=== PATIENT | female | born 1965 ===

== ENCOUNTER 2020-03-07 14:38 | Outpatient (REF) | payer OTHER, SELFPAY | END 2020-03-07 14:39 | disposition home or self-care (01) | LOC: HO.LAB 14:38 | PROVIDERS: PCP Internal Medicine; Visit Provider Internal Medicine | DX: Z20.828 Contact with and (suspected) exposure to other viral communicable diseases (principal) | CPT/HCPCS: 87635 ==

== ENCOUNTER → 2020-04-10 14:34 | Outpatient (BNVA) | payer OTHER, SELFPAY | PROVIDERS: PCP Internal Medicine; Referring Provider Internal Medicine; Visit Provider Nurse Practitioner Family | DX: Z01.818 Encounter for other preprocedural examination (principal); K59.00 Constipation, unspecified | CPT/HCPCS: 99212 ==

== ENCOUNTER 2020-05-31 07:38 | Outpatient (REF) | payer OTHER, SELFPAY | END 2020-05-31 07:39 | disposition home or self-care (01) | LOC: HO.LAB 07:38 | PROVIDERS: PCP Internal Medicine; Visit Provider Internal Medicine | DX: Z20.828 Contact with and (suspected) exposure to other viral communicable diseases (principal) | CPT/HCPCS: C9803; U0003 ==

== ENCOUNTER 2020-07-05 08:47 | Outpatient (REF) | payer OTHER, SELFPAY | END 2020-07-05 08:48 | disposition home or self-care (01) | LOC: HO.LAB 08:47 | PROVIDERS: Visit Provider Internal Medicine | DX: Z20.822 Contact with and (suspected) exposure to COVID-19 (principal) | CPT/HCPCS: 36415; C9803; U0003; U0005 ==

== ENCOUNTER 2020-10-17 10:17 | Emergency (ER) | payer OTHER, SELFPAY ==
[2020-10-17 11:02] VITALS: BP 147/83; PULSE 72; RESP 18; TEMP 36.7; O2SAT 98; BMI 28.3
[2020-10-17] MEDS: Cyclobenzaprine HCl 5 MG TABLET PO (11:40)
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
== END 2020-10-17 12:28 | disposition home or self-care (01) ==
PROVIDERS: Emergency Provider Emergency Medicine; PCP Internal Medicine
DX: Z04.1 Encounter for examination and observation following transport accident (principal); M79.10 Myalgia, unspecified site
CPT/HCPCS: 99283

== ENCOUNTER 2020-10-18 11:00 | Outpatient (RCR) | payer OTHER, SELFPAY | END 2020-10-18 11:27 | disposition home or self-care (01) | LOC: HO.PT 11:00 | PROVIDERS: PCP Internal Medicine; Visit Provider Internal Medicine | DX: M54.5 Low back pain (principal) | CPT/HCPCS: 97110; 97162 ==

== ENCOUNTER 2020-12-07 16:04 | Emergency (ER) | payer OTHER, SELFPAY ==
--- NOTE | ~2020-12-07 | US_ITS ---
EXAMINATION: US VENOUS ULTRASOUND WITH DOPPLER LOWER EXTREMITY, BILATERAL CLINICAL INFORMATION: Swelling. Recent travel. Calf pain. COMPARISON: None TECHNIQUE: Ultrasound of the deep veins is performed from the hip to the calf with compression sonography and color and pulse Doppler assessment. Spectral analysis with color-flow imaging is performed. FINDINGS: RIGHT: There is normal venous compression and respiratory variation and augmented flow. The visualized common femoral vein, superficial femoral vein, profunda femoral vein, popliteal vein, and the trifurcation region shows no evidence of deep venous thrombosis. There is no significant popliteal fossa cyst. LEFT: There is normal venous compression and respiratory variation and augmented flow. The visualized common femoral vein, superficial femoral vein, profunda femoral vein, popliteal vein, and the trifurcation region shows no evidence of deep venous thrombosis. There is no significant popliteal fossa cyst. If the patient's symptoms persist, followup ultrasound in 5 days 7 days might be of value to exclude proximal propagation from a non-visualized calf vein. US/US venous duplex LE BI IMPRESSION: No DVT demonstrated in the bilateral lower extremity.
[2020-12-07 16:12] VITALS: BP 166/69; PULSE 71; RESP 16; TEMP 36.5; O2SAT 100; BMI 28.3
[2020-12-07 17:13] VITALS: BP 147/80; PULSE 75; O2SAT 99
[2020-12-07 18:32] VITALS: RESP 16
--- NOTE | 2020-12-07 20:21 | ED_ITS ---
HPI - Extremity Problem General Chief complaint: Extremity Problem Stated complaint: LEG SWELLING Time Seen by Provider: 12/07/20 17:39 Source: patient Mode of arrival: ambulatory History of Present Illness HPI Narrative: 55-year-old female with a past medical history of asthma, Lakisha's thyroiditis, HTN, presenting to the ED complaining of bilateral lower extremity edema and calf pain >LLE s/p flying home from [place]. Patient admits was sent in by PCP for rule out DVT. denies fever, chills, SOB, CP, cigarette smoking, history of blood clots, trauma/falls, oral OCPs MD Complaint: extremity pain and extremity swelling Related Data Home Medications Medication Instructions Recorded Confirmed clonazepam 0.5 mg tablet 0.25 mg PO BEDTIME 04/10/20 04/10/20 sertraline 100 mg tablet 100 mg PO DAILY 04/10/20 04/10/20 Previous Rx's Medication Instructions Recorded docusate sodium 100 mg capsule 100 mg PO DAILY #30 cap 04/10/20 methylcellulose (laxative) 500 mg 500 mg PO DAILY #30 tab 04/10/20 tablet polyethylene glycol 3350 17 17 g PO ONCE #238 g 04/10/20 gram/dose oral powder acetaminophen [Tylenol Extra 500 mg PO Q6H PRN #20 tab 10/17/20 Strength] cyclobenzaprine 5 mg PO Q8H PRN 5 Days #14 tab 10/17/20 lidocaine [Lidoderm] 1 patch TOPICAL DAILY PRN #30 ea 10/17/20 MDD remove after 12 hours Allergies Allergy/AdvReac Type Severity Reaction Status Date / Time latex Allergy Intermediate HIVES Verified 12/07/20 16:12 aspirin [Aspirin] Allergy Mild HIVES Verified 12/07/20 16:12 Sulfa (Sulfonamide Allergy Mild HIVES Verified 12/07/20 16:12 Antibiotics) [Sulfa (Sulfonamides)] Benadryl Allergy Unknown shortness Verified 12/07/20 16:12 of breath ciprofloxacin [From CIPRO] Allergy Unknown TIGHT Verified 12/07/20 16:12 THROAT diphenhydramine Allergy Unknown HIVES Verified 12/07/20 16:12 [From BENADRYL] penicillin V Allergy Unknown shortness Verified 12/07/20 16:12 of breath Penicillins [PENICILLINS] Allergy Unknown SWELLING Verified 12/07/20 16:12 sulfadiazine Allergy Unknown rash Verified 12/07/20 16:12 Vicodin AdvReac Unknown hives Uncoded 07/26/19 00:00 Review of Systems Review of Systems: Constitutional: No Fever, No Chills, No Malaise Cardiovascular: No Chest Pain, No SOB, No Dyspnea on Exertion, +Edema Respiratory: No Cough, No Dyspnea Gastrointestinal: No Nausea, No Vomiting, No Diarrhea, No Abdominal pain Genitourinary: No Dysuria, No Urinary Frequency, No Hematuria Musculoskeletal: No joint pain, +calf pain, No Joint Swelling Skin: No Skin Lesions, No rash Neuro: No Weakness, No Numbness, No Paresthesias Yes all other systems are reviewed and are negative [facility] Past Medical History Attestation statement: The following information was validated with the patient. Medical History (Updated 12/07/20 @ 20:27 by ALICE Patterson) Asthma H/O Lakisha thyroiditis HTN (hypertension) Surgical History (Updated 04/10/20 @ 14:36 by ELISA Duncan) H/O: hysterectomy Family History Family History (Updated 04/10/20 @ 14:37 by ELISA Duncan) Father Diabetes High blood pressure Stroke Mother Pancreatic cancer High blood pressure Sister Diabetes High blood pressure Social History Social History (Updated 04/10/20 @ 14:38 by ELISA Duncan) Household Members: None Housing: Apartment Alcohol intake: never Patient Tobacco Use Status: Never used Tobacco Use of substances other than those prescribed or required for medical reasons: No Advance Directives: No Advance Directives Information Provided: Yes Patient : No Physical Exam Vital Signs: Vital Signs: Last Vital Signs Temp 97.7 F 12/07/20 16:12 Pulse 75 12/07/20 17:13 Resp 16 12/07/20 18:32 BP 147/80 H 12/07/20 17:13 Pulse Ox 99 12/07/20 17:13 Body Mass Index 28.3 Const: General: cooperative and healthy appearing Orientation/consciousness: patient oriented x3 Limitations: no limitations HENMT: Head: Yes normal to inspection Ears: hearing grossly normal bilaterally General nose exam: Normal external nose present Face and sinus: Yes normal facial exam Eyes: General: appearance normal, both eyes and all related structures EOM: EOMs intact bilaterally Neck: Neck: Yes normal visual inspection Resp: Effort & Inspection: normal respiratory effort and not labored Cardio: Rate: regular rate Peripheral pulses: dorsalis pedis present GI: Inspection: Yes normal to inspection Skin: Rashes: no rashes Wounds: no wounds Neuro: General: patient oriented x3 and tone normal Gait exam (Neuro): Normal gait present Extrem: Other: + mild left lower extremity ankle swelling noted with +left calf tenderness No lower extremity pitting edema. NV intact General: Yes normal to inspection Course Course Course Narrative: US venous duplex LE BI IMPRESSION: No DVT demonstrated in the bilateral lower extremity. >> results discussed with patient including worrisome signs and symptoms and strict return precautions, she verbalized understanding feel safe for discharge home MDM - Extremity (Nontraumatic) MDM Narrative Medical decision making narrative: 55-year-old female with a past medical history of asthma, Lakisha's thyroiditis, HTN, presenting to the ED complaining of bilateral lower extremity edema and calf pain >LLE s/p flying home from [place]. on exam VS, NAD/ well-appearing, physical exam as above. Concern for DVT. Low concern for PE without SOB/CP plan: Bilateral venous duplex ultrasound Discharge Plan Discharge Clinical Impression: Lower extremity edema Patient Disposition: Home, Self-Care Instructions: Edema (ED) Additional Instructions: your ultrasound was unremarkable It is important for you to follow-up with your primary care doctor You should order compression stockings, elevate your feet, take Tylenol Motrin for pain If her symptoms persist or worsen, develop any shortness breath or chest pain please return to the ED Prescriptions: No Action acetaminophen [Tylenol Extra Strength] 500 mg tablet 500 mg PO Q6H PRN (Reason: pain or fever) Qty: 20 RF: 0 lidocaine [Lidoderm] 5 % adhesive patch,medicated 1 patch topical DAILY MDD remove after 12 hours PRN (Reason: pain) Qty: 30 RF: 0 cyclobenzaprine 5 mg tablet 5 mg PO Q8H PRN (Reason: pain (scale score 7-10)) 5 Days Qty: 14 RF: 0 clonazepam [Klonopin] 0.5 mg tablet 0.25 mg PO BEDTIME RF: 0 sertraline 100 mg tablet 100 mg PO DAILY RF: 0 polyethylene glycol 3350 [Miralax] 17 gram/dose powder 17 g PO ONCE Qty: 238 RF: 0 docusate sodium 100 mg capsule 100 mg PO DAILY Qty: 30 RF: 2 Citrucel 500 mg tablet 500 mg PO DAILY Qty: 30 RF: 2 Referrals: Sara Boyce MD [Primary Care Provider] - 2 days
== END 2020-12-07 20:32 | disposition home or self-care (01) ==
PROVIDERS: Emergency Provider Emergency Medicine Emergency Medical Services; PCP Internal Medicine
DX: R60.0 Localized edema (principal); M79.662 Pain in left lower leg; M79.661 Pain in right lower leg; I10 Essential (primary) hypertension
CPT/HCPCS: 93970; 99284

== ENCOUNTER 2021-02-19 12:56 | Outpatient (REF) | payer OTHER, SELFPAY ==
--- NOTE | ~2021-02-19 | MM_ITS ---
EXAMINATION: MM SCREENING DIGITAL BREAST TOMOSYNTHESIS, BILATERAL CLINICAL INFORMATION: Screening. Asymptomatic. The lifetime risk of breast cancer based on the Tyrer-Cuzick Model is 9.0%. COMPARISON: Mammography: April 23, 2019 and studies dating back to July 30, 2011 TECHNIQUE: Digital breast tomosynthesis is performed in both the craniocaudal and mediolateral oblique views along with computer-aided detection (CAD). Synthesized 2D images are generated from the tomosynthesis. FINDINGS: There are scattered areas of fibroglandular density (ACR BI-RADS breast composition Category b). There are no significant masses, abnormal calcifications, or other abnormalities. MM/MM tomosynthesis screening BI IMPRESSION: There are no significant changes from prior study. ASSESSMENT: BI-RADS 1: Negative RECOMMENDATION: Routine annual mammography screening. This patient's information was entered into a reminder system with a target due date for their next mammogram.
== END 2021-02-19 12:57 | disposition home or self-care (01) ==
LOC: HO.MAMMO 12:56
PROVIDERS: PCP Internal Medicine; Visit Provider Internal Medicine
DX: Z12.31 Encounter for screening mammogram for malignant neoplasm of breast (principal)
CPT/HCPCS: 77063; 77067

== ENCOUNTER 2021-04-25 12:56 | Outpatient (REF) | payer OTHER, SELFPAY ==
--- NOTE | ~2021-04-25 | XR_ITS ---
EXAMINATION: XR CHEST CLINICAL INFORMATION: Acute lower respiratory tract infection COMPARISON: Previous chest x-rays most recent March 2018 TECHNIQUE: 2 views of the chest were obtained. FINDINGS: The cardiac and mediastinal contours are stable. The lungs are clear. There is no pleural effusion or pneumothorax. There is curvature of the midthoracic spine to the right. XR/XR chest 2V IMPRESSION: No evidence for acute disease in the chest.
[2021-04-25 14:15] LABS: Appearance Urine CLEAR; Color Urine YELLOW; Glucose Urine UA NEG (NEG); Leukocyte Esterase Urine NEG (NEG); Nitrite Urine NEG (NEG); Specific Gravity - Urine <= 1.005 (1.005-1.025); Urine Blood NEG (NEG); Urine Ketones NEG (NEG); Urine Protein NEG (NEG-TRACE)
[2021-04-25 14:23] LABS: RBC Urine 0-2 /HPF (0); Squamous Epithelial Cell Urine 1+ /LPF; WBC Urine 0-2 /HPF (0-4)
== END 2021-04-25 12:57 | disposition home or self-care (01) ==
LOC: HO.XRAY 12:56
PROVIDERS: PCP Internal Medicine; Visit Provider Internal Medicine
DX: J22 Unspecified acute lower respiratory infection (principal); R30.0 Dysuria
CPT/HCPCS: 71046; 81001

== ENCOUNTER → 2021-08-08 14:58 | Outpatient (BNVA) | payer OTHER, SELFPAY | PROVIDERS: PCP Internal Medicine; Visit Provider Internal Medicine Endocrinology, Diabetes & Metabolism | DX: E06.3 Autoimmune thyroiditis (principal) | CPT/HCPCS: 99212 ==

== ENCOUNTER 2021-08-16 10:37 | Outpatient (REF) | payer OTHER, SELFPAY ==
[2021-08-16 12:18] LABS: Free T4 (Free Thyroxine) 0.66 ng/dL (0.71-1.85); Thyroid Stimulating Hormone 1.05 uIU/mL (0.32-4.0)
== END 2021-08-16 10:38 | disposition home or self-care (01) ==
LOC: HO.LAB 10:37
PROVIDERS: PCP Internal Medicine; Visit Provider Internal Medicine Endocrinology, Diabetes & Metabolism
DX: E06.3 Autoimmune thyroiditis (principal)
CPT/HCPCS: 36415; 84439; 84443

== ENCOUNTER 2021-12-08 03:28 | Observation (INO) | payer OTHER, SELFPAY ==
[2021-12-08] VITALS (22 sets, daily range): BP systolic 111–148; BP diastolic 67–84; PULSE 67–88; RESP 14–18; TEMP 36.1–36.8; O2SAT 94–100; BMI 29.7
--- NOTE | ~2021-12-08 | US_ITS ---
EXAMINATION: US ABDOMEN LIMITED CLINICAL INFORMATION: Right upper quadrant pain. COMPARISON: 05/02/2018 TECHNIQUE: Real-time imaging of the right upper quadrant abdominal viscera. FINDINGS: PANCREAS: The pancreatic head and body are unremarkable. The tail is obscured by gas. LIVER: The liver is normal in size. The liver contour is normal. There is diffuse increased liver parenchymal echogenicity, consistent with hepatic steatosis. No focal hepatic lesion. There is no intrahepatic biliary duct dilatation seen. GALLBLADDER: Stones and sludge are seen in the gallbladder lumen with a stone at the gallbladder neck. No gallbladder wall thickening, edema, or pericholecystic fluid. COMMON BILE DUCT: Normal in caliber measuring 0.4 cm in diameter. RIGHT KIDNEY: Normal. No hydronephrosis. No renal calculi or focal parenchymal lesions. The kidney measures 10.8 cm in maximum dimension. FREE FLUID: None. US/US abdomen limited IMPRESSION: Hepatic steatosis. Cholelithiasis and gallbladder sludge. No inflammatory change.
--- NOTE | ~2021-12-08 | XR_ITS ---
EXAMINATION: XR CHEST CLINICAL INFORMATION: Preop COMPARISON: Chest x-ray 04/25/2021 TECHNIQUE: Frontal view of the chest was obtained. FINDINGS: The lungs are somewhat expanded and clear. The heart size and pulmonary vascularity is normal. No gross bony abnormality seen. XR/XR chest 1V IMPRESSION: Unremarkable chest examination.
[2021-12-08] MEDS: Ondansetron ODT 4 MG TAB.RAPDIS TRANSLINGU (03:40)
[2021-12-08 03:53] LABS: MANUAL DIFF FLAG NO
[2021-12-08 03:55] LABS: Basophils Absolute Auto 0.1 X10*3/uL (0.0-0.2); Basophils Percent Auto 0.6 % (0-2); Eosinophils Absolute Auto 0.4 X10*3/uL (0.0-0.4); Eosinophils Percent Auto 4.2 % (0-4); Hematocrit 41.9 % (37.0-47.0); Hemoglobin 14.3 g/dl (12.0-16.0); Imm Gran Abs Auto 0.02 X10*3/uL (0.00-0.03); Imm Gran Pct Auto 0.2 % (0.0-0.4); Lymphocytes Absolute Auto 4.1 X10*3/uL (1.2-4.9); Lymphocytes Percent Auto 39.5 % (20-40); Mean Corpuscular HGB Conc 34.1 g/dl (31.0-35.0); Mean Corpuscular Hemoglobin 29.8 pg (27.0-33.0); Mean Corpuscular Volume 87.3 fL (80.0-98.0); Mean Platelet Volume 9.4 fL (9.4-12.3); Monocytes Absolute Auto 0.7 X10*3/uL (0.1-1.2); Neutrophils Absolute Auto 5.1 x10*3/uL (2.0-8.3); Neutrophils Percent Auto 48.5 % (45-73); Platelet Count 275 X10*3/uL (160-400); Red Cell Distribution Width 12.4 % (11.0-16.0); White Blood Count 10.4 X10*3/uL (4.8-10.8)
[2021-12-08 04:09] LABS: COVID-19 Test Negative (Negative)
[2021-12-08 04:18] LABS: Alanine Aminotransferase 32 U/L (0-31); Albumin Level 4.4 g/dL (3.5-5.0); Alkaline Phosphatase 93 U/L (39-117); Anion Gap 13 (12-20); Aspartate Amino Transferase 22 U/L (5-31); Bilirubin Direct < 0.2 mg/dL (0.0-0.5); Bilirubin Total 0.3 mg/dL (0.0-1.0); Blood Urea Nitrogen 14 mg/dL (9-16); Calcium 9.6 mg/dL (8.4-10.2); Carbon Dioxide 28 mmol/L (22-29); Chloride 103 mmol/L (96-108); Creatinine Clr Calc Pharmacy 56.9; Estimated Glomerular Filt Rate 59; Glucose Random 113 mg/dL (60-115); Potassium 3.7 mmol/L (3.3-5.1); Sodium 140 mmol/L (135-145); Total Protein 7.6 g/dL (6.5-8.0)
--- NOTE | 2021-12-08 04:49 | ED_ITS ---
HPI - Abdominal Pain General Chief Complaint: Abdominal Pain Stated Complaint: Flank pain Time Seen by Provider: 12/08/21 04:34 Source: patient Mode of arrival: ambulatory History of Present Illness HPI narrative: 56-year-old female who presents with 2 days onset of right upper quadrant abdominal discomfort that radiates into the back and has been associated with nausea but denies any vomiting, fever, chills, or diarrhea. She denies any alcohol/drug/marijuana use in states that she still has her gallbladder and has no history of renal colic. She denies any recent cough. Related Data Home Medications Medication Instructions Recorded Confirmed clonazepam 0.5 mg tablet (Klonopin) 0.25 mg PO BEDTIME 04/10/20 08/08/21 sertraline 100 mg tablet 100 mg PO DAILY 04/10/20 08/08/21 amlodipine 10 mg tablet 10 mg PO DAILY 08/08/21 08/08/21 docusate sodium 100 mg capsule 100 mg PO DAILY PRN 08/08/21 08/08/21 hydrochlorothiazide 25 mg tablet 25 mg PO DAILY 08/08/21 08/08/21 lidocaine 5 % topical ointment topical 08/08/21 08/08/21 methylcellulose (laxative) 500 mg 500 mg PO DAILY PRN 08/08/21 08/08/21 tablet (Citrucel) polyethylene glycol 3350 17 17 g PO ONCE PRN 08/08/21 08/08/21 gram/dose oral powder (Miralax) Previous Rx's Medication Instructions Recorded acetaminophen 500 mg tablet 500 mg PO Q6H PRN pain or fever 10/17/20 (Tylenol Extra Strength) #20 tabs cyclobenzaprine 5 mg tablet 5 mg PO Q8H PRN pain (scale score 10/17/20 7-10) 5 days #14 tabs Allergies Allergy/AdvReac Type Severity Reaction Status Date / Time latex Allergy Intermediate HIVES Verified 08/08/21 15:09 aspirin [Aspirin] Allergy Mild HIVES Verified 08/08/21 15:09 Sulfa (Sulfonamide Allergy Mild HIVES Verified 08/08/21 15:09 Antibiotics) [Sulfa (Sulfonamides)] Benadryl Allergy Unknown shortness Verified 08/08/21 15:09 of breath ciprofloxacin [From CIPRO] Allergy Unknown TIGHT Verified 08/08/21 15:09 THROAT diphenhydramine Allergy Unknown HIVES Verified 08/08/21 15:09 [From BENADRYL] penicillin V Allergy Unknown shortness Verified 08/08/21 15:09 of breath Penicillins [PENICILLINS] Allergy Unknown SWELLING Verified 08/08/21 15:09 sulfadiazine Allergy Unknown rash Verified 08/08/21 15:09 Vicodin AdvReac Unknown hives Uncoded 08/08/21 15:09 Review of Systems Review of Systems Pertinent positives and negatives as stated in HPI 10 point review of systems is otherwise negative. [facility] Past Medical History Source: nursing notes reviewed Medical History Asthma H/O Lakisha thyroiditis Lakisha's thyroiditis HTN (hypertension) Surgical History H/O: hysterectomy Family History Family History Father Diabetes High blood pressure Stroke Mother Pancreatic cancer High blood pressure Sister Diabetes High blood pressure Social History Social History Household Members: None Housing: Apartment Alcohol intake: never Patient Tobacco Use Status: Never used Tobacco Use of substances other than those prescribed or required for medical reasons: No Advance Directives: No Physical Exam ED Vital Signs: Vital Signs - 24 hr 12/08/21 03:35 12/08/21 06:00 Temperature 97.5 F 97.8 F Pulse Rate 76 67 Respiratory Rate 18 15 Blood Pressure 148/84 H 146/80 H Pulse Oximetry 100 100 Oxygen Delivery Method Room Air Room Air BMI result Body Mass Index 29.7 VITAL SIGNS: Reviewed. GENERAL: Well developed, well nourished, in no acute distress. HEAD: Normocephalic/atraumatic EYES: PERRLA, EOMI EARS: Ext canals without abnormality OROPHARYNX: no oral lesions noted, posterior pharynx clear LUNGS: Normal breath sounds. SpO2<100> CARDIOVASCULAR: Regular rate and rhythm without noted murmurs ABDOMEN: Soft, right upper quadrant abdominal pain without rebound, non- distended with bowel sounds. MUSCULOSKELETAL: No tenderness, deformities, or effusions noted on gross inspection. EXTREMITIES: No cyanosis, clubbing or edema. SKIN: Inspection of the skin reveals no rash NEUROLOGIC: Alert and oriented x 4. Strength and sensation to light touch were grossly intact x 4. Course Course Course Narrative: 56-year-old female with history and clinical presentation suggestive of possible cholecystitis but doubt pneumonia or renal colic at this time. Review of all investigations and after speaking with the motorcycle technician it would seem that patient has a stone within the neck of the gallbladder and on re-evaluation she continues to abdominal discomfort. I discussed the case with Dr. Mock who will see the patient here in the ER. Otherwise, ultrasound did not show any evidence of acute cholecystitis and patient does not have a leukocytosis. She is otherwise hemodynamically stable. Signed out to Dr Aman ALEGRIA - Abdominal Pain Lab Data Result diagrams: 12/08/21 03:39 12/08/21 03:39 Labs: Lab Results 12/08/21 12/08/21 12/08/21 Range/Units 03:39 03:39 03:39 WBC 10.4 (4.8-10.8) X10*3/uL RBC 4.80 (4.20-5.50) X10*6/uL Hgb 14.3 (12.0-16.0) g/dl Hct 41.9 (37.0-47.0) % MCV 87.3 (80.0-98.0) fL MCH 29.8 (27.0-33.0) pg MCHC 34.1 (31.0-35.0) g/dl RDW 12.4 (11.0-16.0) % Plt Count 275 (160-400) X10*3/uL MPV 9.4 (9.4-12.3) fL Immature Gran % (Auto) 0.2 (0.0-0.4) % Neut % (Auto) 48.5 (45-73) % Lymph % (Auto) 39.5 (20-40) % [place] % (Auto) 7.0 (2-11) % Eos % (Auto) 4.2 H (0-4) % Baso % (Auto) 0.6 (0-2) % Lymph # (Auto) 4.1 (1.2-4.9) X10*3/uL [place] # (Auto) 0.7 (0.1-1.2) X10*3/uL Eos # (Auto) 0.4 (0.0-0.4) X10*3/uL Baso # (Auto) 0.1 (0.0-0.2) X10*3/uL Abs Immat Gran (auto) 0.02 (0.00-0.03) X10*3/uL Absolute Neuts (auto) 5.1 (2.0-8.3) x10*3/uL Absolute Nucleated RBC 0.000 (0.0-0.012) X10*3/uL Nucleated RBC % (auto) 0.0 (0.0-0.2) /100WBC Sodium 140 (135-145) mmol/L Potassium 3.7 (3.3-5.1) mmol/L Chloride 103 (96-108) mmol/L Carbon Dioxide 28 (22-29) mmol/L Anion Gap 13 (12-20) BUN 14 (9-16) mg/dL Creatinine 0.98 (0.5-1.4) mg/dL Estim Creat Clear Calc 56.9 Estimated GFR 59 Random Glucose 113 (60-115) mg/dL Calcium 9.6 (8.4-10.2) mg/dL Total Bilirubin 0.3 (0.0-1.0) mg/dL Direct Bilirubin < 0.2 (0.0-0.5) mg/dL AST 22 (5-31) U/L ALT 32 H (0-31) U/L Alkaline Phosphatase 93 (39-117) U/L Total Protein 7.6 (6.5-8.0) g/dL Albumin 4.4 (3.5-5.0) g/dL Lipase 38 (8-78) U/L Urine Color Urine Appearance Urine pH (5.0-8.0) Ur Specific [place] (1.005-1.025) Urine Protein (NEG-TRACE) MG/DL Urine Glucose (UA) (NEG) MG/DL Urine Ketones (NEG) MG/DL Urine Blood (NEG) Urine Nitrite (NEG) Ur Leukocyte Esterase (NEG) Urine RBC (0) /HPF Urine WBC (0-4) /HPF Ur Squamous Epith Cells /LPF Amorphous Sediment /LPF Urine Bacteria /LPF COVID-19 (SHAREE) Negative (Negative) COVID-19 Clin Com See Note 12/08/21 Range/Units 05:36 WBC (4.8-10.8) X10*3/uL RBC (4.20-5.50) X10*6/uL Hgb (12.0-16.0) g/dl Hct (37.0-47.0) % MCV (80.0-98.0) fL MCH (27.0-33.0) pg MCHC (31.0-35.0) g/dl RDW (11.0-16.0) % Plt Count (160-400) X10*3/uL MPV (9.4-12.3) fL Immature Gran % (Auto) (0.0-0.4) % Neut % (Auto) (45-73) % Lymph % (Auto) (20-40) % [place] % (Auto) (2-11) % Eos % (Auto) (0-4) % Baso % (Auto) (0-2) % Lymph # (Auto) (1.2-4.9) X10*3/uL [place] # (Auto) (0.1-1.2) X10*3/uL Eos # (Auto) (0.0-0.4) X10*3/uL Baso # (Auto) (0.0-0.2) X10*3/uL Abs Immat Gran (auto) (0.00-0.03) X10*3/uL Absolute Neuts (auto) (2.0-8.3) x10*3/uL Absolute Nucleated RBC (0.0-0.012) X10*3/uL Nucleated RBC % (auto) (0.0-0.2) /100WBC Sodium (135-145) mmol/L Potassium (3.3-5.1) mmol/L Chloride (96-108) mmol/L Carbon Dioxide (22-29) mmol/L Anion Gap (12-20) BUN (9-16) mg/dL Creatinine (0.5-1.4) mg/dL Estim Creat Clear Calc Estimated GFR Random Glucose (60-115) mg/dL Calcium (8.4-10.2) mg/dL Total Bilirubin (0.0-1.0) mg/dL Direct Bilirubin (0.0-0.5) mg/dL AST (5-31) U/L ALT (0-31) U/L Alkaline Phosphatase (39-117) U/L Total Protein (6.5-8.0) g/dL Albumin (3.5-5.0) g/dL Lipase (8-78) U/L Urine Color STRAW Urine Appearance CLOUDY Urine pH 7.5 (5.0-8.0) Ur Specific [place] 1.015 (1.005-1.025) Urine Protein NEG (NEG-TRACE) MG/DL Urine Glucose (UA) NEG (NEG) MG/DL Urine Ketones NEG (NEG) MG/DL Urine Blood TRACE (NEG) Urine Nitrite NEG (NEG) Ur Leukocyte Esterase NEG (NEG) Urine RBC 0-2 (0) /HPF Urine WBC 0-2 (0-4) /HPF Ur Squamous Epith Cells 1+ /LPF Amorphous Sediment 3+ /LPF Urine Bacteria 1+ /LPF COVID-19 (SHAREE) (Negative) COVID-19 Clin Com Discharge Plan Discharge Clinical Impression: Right upper quadrant abdominal pain, Cholelithiasis Patient Disposition: Still a Patient Prescriptions: No Action acetaminophen [Tylenol Extra Strength] 500 mg tablet 500 mg PO Q6H PRN (Reason: pain or fever) Qty: 20 0RF cyclobenzaprine 5 mg tablet 5 mg PO Q8H PRN (Reason: pain (scale score 7-10)) 5 Days Qty: 14 0RF clonazepam [Klonopin] 0.5 mg tablet 0.25 mg PO BEDTIME Rx Instructions: administer 30 minutes before bedtime sertraline 100 mg tablet 100 mg PO DAILY docusate sodium 100 mg capsule 100 mg PO DAILY PRN amlodipine 10 mg tablet 10 mg PO DAILY hydrochlorothiazide 25 mg tablet 25 mg PO DAILY Citrucel 500 mg tablet 500 mg PO DAILY PRN polyethylene glycol 3350 [Miralax] 17 gram/dose powder 17 g PO ONCE PRN Rx Instructions: As directed by gastroenterology department at [facility] lidocaine 5 % ointment topical
[2021-12-08 05:09] LABS: Lipase 38 U/L (8-78)
[2021-12-08] MEDS: Acetaminophen 325 MG TABLET 975 MG PO (05:14)
[2021-12-08 05:41] LABS: Appearance Urine CLOUDY; Color Urine STRAW; Glucose Urine UA NEG (NEG); Leukocyte Esterase Urine NEG (NEG); Nitrite Urine NEG (NEG); PH 7.5 (5.0-8.0); Specific Gravity - Urine 1.015 (1.005-1.025); UACC Culture Trigger NO; Urine Blood TRACE (NEG); Urine Ketones NEG (NEG); Urine Protein NEG (NEG-TRACE)
[2021-12-08 05:56] LABS: RBC Urine 0-2 /HPF (0); Squamous Epithelial Cell Urine 1+ /LPF; WBC Urine 0-2 /HPF (0-4)
[2021-12-08 05:57] LABS: Bacteria Urine 1+ /LPF
[2021-12-08 06:00] LABS: Amorphous Sediment Urine 3+ /LPF
--- NOTE | 2021-12-08 07:38 | ECG_ITS ---
Test Reason : ABD PAIN Blood Pressure : / mmHG Vent. Rate : 071 BPM Atrial Rate : 071 BPM P-R Int : 172 ms QRS Dur : 078 ms QT Int : 430 ms P-R-T Axes : 052 003 035 degrees QTc Int : 467 ms Normal sinus rhythm Normal ECG When compared with ECG of 02-MAY-2018 05:02, No significant change was found Referred By: Sara Jimenez Electronically Signed By:Aba Garza
--- NOTE | 2021-12-08 07:45 | P.HPGS_ITS ---
History of Present Illness History of Present Illness Date of Service: 12/08/21 Chief complaint: Flank pain Narrative: Anyi Em is a 56 year old female presenting with complaints of abdominal pain in the right upper quadrant. The pain began at approximately 02:00 this morning. She reports eating chicken and pork chops last evening prior to the onset of pain. He also reports prior episodes of similar pain attributed to an ovarian cyst. She reports nausea without vomiting. She denies fever or chills. She did have some loose stools. She presented to the emergency department and was noted to be tender in the right upper quadrant. Subsequent workup with ultrasound of the abdomen revealed impacted gallstones at the neck of the gallbladder. No wall thickening or ductal dilatation was identified. Patient is admitted for management of her acute cholecystitis. Review of Systems Review of Systems: Yes all other systems are reviewed and are negative Constitutional: Constitutional: Denies chills, Denies fever(s), Denies headache(s), Reports poor appetite and Denies weakness ENT: Denies headache(s) Cardiovascular: Cardiovascular: Denies chest pain, Denies irregular heart rhythm, Denies palpitations and Denies dyspnea Respiratory: Respiratory: Denies cough, Denies excessive phlegm production and Denies dyspnea Gastrointestinal: Gastrointestinal: Reports abdominal pain, Denies bloating, Denies change in bowel habits, Denies constipation, Denies heartburn, Reports diarrhea, Reports nausea and Denies vomiting Genitourinary: Genitourinary: Denies urinary frequency Musculoskeletal: Musculoskeletal: Denies back pain, Denies muscle weakness and Denies numbness Integumentary/Breasts: Skin/Breast: Denies changing lesions and Denies unusual bruising Neurologic: Denies headache(s), Denies numbness, Denies paresthesias and Denies weakness Psychiatric: Psychiatric: Reports anxiety and Denies depression Endocrine: Endocrine: Denies palpitations Hematologic/Lymphatic: Hematologic/Lymphatic: Denies lymphadenopathy PMFSH Past Medical History Medical History Asthma H/O Lakisha thyroiditis Lakisha's thyroiditis HTN (hypertension) Family History Family History Father Diabetes High blood pressure Stroke Mother Pancreatic cancer High blood pressure Sister Diabetes High blood pressure Surgical History Surgical History H/O: hysterectomy Social History Social History Household Members: None Housing: Apartment Alcohol intake: never Patient Tobacco Use Status: Never used Tobacco Use of substances other than those prescribed or required for medical reasons: No Advance Directives: No Meds Allergies Allergy/AdvReac Type Severity Reaction Status Date / Time latex Allergy Intermediate HIVES Verified 08/08/21 15:09 aspirin [Aspirin] Allergy Mild HIVES Verified 08/08/21 15:09 Sulfa (Sulfonamide Allergy Mild HIVES Verified 08/08/21 15:09 Antibiotics) [Sulfa (Sulfonamides)] Benadryl Allergy Unknown shortness Verified 08/08/21 15:09 of breath ciprofloxacin [From CIPRO] Allergy Unknown TIGHT Verified 08/08/21 15:09 THROAT diphenhydramine Allergy Unknown HIVES Verified 08/08/21 15:09 [From BENADRYL] penicillin V Allergy Unknown shortness Verified 08/08/21 15:09 of breath Penicillins [PENICILLINS] Allergy Unknown SWELLING Verified 08/08/21 15:09 sulfadiazine Allergy Unknown rash Verified 08/08/21 15:09 Vicodin AdvReac Unknown hives Uncoded 08/08/21 15:09 Active Medications: Current Medications Sodium Chloride (Ns) 1,000 mls @ 999 mls/hr IV .Q1H1M NICCI Stop: 12/08/21 08:00 Ceftriaxone Sodium 1 gm/ (Sodium Chloride) 50 mls @ 100 mls/hr IV ONCE ONE Stop: 12/08/21 08:10 Home Medications Medication Instructions Recorded Confirmed Last Taken Type clonazepam 0.5 mg tablet (Klonopin) 0.25 mg PO BEDTIME 04/10/20 08/08/21 Unknown History sertraline 100 mg tablet 100 mg PO DAILY 04/10/20 08/08/21 Unknown History amlodipine 10 mg tablet 10 mg PO DAILY 08/08/21 08/08/21 Unknown History docusate sodium 100 mg capsule 100 mg PO DAILY PRN 08/08/21 08/08/21 Unknown History hydrochlorothiazide 25 mg tablet 25 mg PO DAILY 08/08/21 08/08/21 Unknown History lidocaine 5 % topical ointment topical 08/08/21 08/08/21 Unknown History methylcellulose (laxative) 500 mg 500 mg PO DAILY PRN 08/08/21 08/08/21 Unknown History tablet (Citrucel) polyethylene glycol 3350 17 17 g PO ONCE PRN 08/08/21 08/08/21 Unknown History gram/dose oral powder (Miralax) Physical Exam Vital Signs: Vital Signs: Last Vital Signs Temp 97.8 F 12/08/21 06:00 Pulse 70 12/08/21 07:09 Resp 14 12/08/21 07:09 BP 135/71 12/08/21 07:09 Pulse Ox 99 12/08/21 07:09 O2 Del Method 12/08/21 07:09 BMI result Body Mass Index 29.7 Const: General: cooperative and no acute distress Nutritional Appearance: well nourished Orientation/consciousness: patient oriented x3 Limitations: no limitations HEENT: Head: Yes normocephalic and Yes atraumatic Ears: hearing grossly normal bilaterally Eyes: Sclerae: sclerae normal Resp: Effort & Inspection: normal respiratory effort, no audible wheezes, no cough and no respiratory distress Cardio: Jugular venous distension: no JVD GI: Inspection: Yes normal to inspection Palpation (GI): Soft to palpation, Tenderness to palpation present (GI) in the RUQ and Yu's sign positive, no guarding, not rigid and No Rebound tenderness present Percussion: Yes normal to percussion Auscultation: normal bowel sounds Skin: Other: Warm, dry, no rash Neuro: General: patient oriented x3 Extrem: General: Yes no clubbing, cyanosis or edema Psych: Affect: Anxious affect present Results Results Labs: Short CBC 12/08/21 Range/Units 03:39 WBC 10.4 (4.8-10.8) X10*3/uL Hgb 14.3 (12.0-16.0) g/dl Hct 41.9 (37.0-47.0) % Plt Count 275 (160-400) X10*3/uL BMP 12/08/21 03:39 Sodium 140 Potassium 3.7 Chloride 103 Carbon Dioxide 28 BUN 14 Creatinine 0.98 Calcium 9.6 Liver Function 12/08/21 Range/Units 03:39 Total Bilirubin 0.3 (0.0-1.0) mg/dL Direct Bilirubin < 0.2 (0.0-0.5) mg/dL AST 22 (5-31) U/L ALT 32 H (0-31) U/L Alkaline Phosphatase 93 (39-117) U/L Albumin 4.4 (3.5-5.0) g/dL Urine 12/08/21 Range/Units 05:36 Urine Color STRAW Urine Appearance CLOUDY Urine pH 7.5 (5.0-8.0) Ur Specific [place] 1.015 (1.005-1.025) Urine Protein NEG (NEG-TRACE) MG/DL Urine Glucose (UA) NEG (NEG) MG/DL Assessment and Plan (1) Acute cholecystitis due to biliary calculus: Status: Acute Plan 56-year-old female patient presenting with acute onset of abdominal pain in the right upper quadrant with probable previous episodes of similar pain in the past. Pain is associated with nausea and diarrhea. On examination the patient is tender in the right upper quadrant with a positive Yu sign. Ultrasound reveals a large gallstones and neck of the gallbladder which is nonmobile. She clinically has findings suggestive of acute cholecystitis due to cholelithiasis. I recommended laparoscopic cholecystectomy or possible open cholecystectomy. After discussion of the procedure, risks, and alternatives, she consents to the surgery. She has been added onto the operative schedule for today. Quality Stroke Does the patient have a stroke diagnosis?: No VTE Prior VTE?: No VTE Risk Level:: Surgical - moderate VTE Device Contraindication: N/A - Device Ordered VTE Drug Contraindication: Treatment Not Indicated Procedures Date of Service Date of Service: 12/08/21
[2021-12-08] MEDS: cefTRIAXone sodium 1 GM in 0.9 % Sodium Chloride 50 ML IV (08:21)
[2021-12-08] MEDS: 0.9 % Sodium Chloride 1,000 ML 999 ML IV (08:22)
--- NOTE | 2021-12-08 08:25 | P.CONAN_ITS ---
[facility] Active Problems Active Problems: All Active Problems (Updated 12/08/21 @ 07:49 by Brian Mock MD) Acute cholecystitis due to biliary calculus (Acute) Right upper quadrant abdominal pain (Acute) Cholelithiasis (Acute) Lakisha's thyroiditis (Acute) Past Medical History Medical History Asthma H/O Lakisha thyroiditis Lakisha's thyroiditis HTN (hypertension) Functional capacity: independent ambulation Patient : No Family History Family History Father Diabetes High blood pressure Stroke Mother Pancreatic cancer High blood pressure Sister Diabetes High blood pressure Surgical History Surgical History H/O: hysterectomy History of Problems with Anesthesia: No Social History Social History Household Members: None Housing: Apartment Alcohol intake: never Patient Tobacco Use Status: Never used Tobacco Use of substances other than those prescribed or required for medical reasons: No Advance Directives: No Meds Allergies Allergy/AdvReac Type Severity Reaction Status Date / Time latex Allergy Intermediate HIVES Verified 08/08/21 15:09 aspirin [Aspirin] Allergy Mild HIVES Verified 08/08/21 15:09 Sulfa (Sulfonamide Allergy Mild HIVES Verified 08/08/21 15:09 Antibiotics) [Sulfa (Sulfonamides)] Benadryl Allergy Unknown shortness Verified 08/08/21 15:09 of breath ciprofloxacin [From CIPRO] Allergy Unknown TIGHT Verified 08/08/21 15:09 THROAT diphenhydramine Allergy Unknown HIVES Verified 08/08/21 15:09 [From BENADRYL] penicillin V Allergy Unknown shortness Verified 08/08/21 15:09 of breath Penicillins [PENICILLINS] Allergy Unknown SWELLING Verified 08/08/21 15:09 sulfadiazine Allergy Unknown rash Verified 08/08/21 15:09 Vicodin AdvReac Unknown hives Uncoded 08/08/21 15:09 Active Medications: Current Medications Hydromorphone HCl (Hydromorphone Hcl 1 Mg/Ml Syringe) 0.5 mg IVPUSH Q4H PRN; Protocol PRN Reason: Pain, Severe (Pain Scale 7-10) Lactated Ringer's (Lr) 1,000 mls @ 100 mls/hr IVCONT .Q10H NICCI Ondansetron HCl (Ondansetron Hcl 4 Mg/2 Ml Vial) 4 mg IVPUSH QID PRN PRN Reason: Nausea Oxycodone HCl (Oxycodone Hcl Immed Release 5 Mg Tablet) 5 mg PO Q6H PRN PRN Reason: Pain, Moderate (Pain Scale 4-6 Pharmacy Consult (Consult Rx Perform Med Rec) 1 each MISCELLANE ONCE PRN PRN Reason: Consult order Home Medications Medication Instructions Recorded Confirmed Last Taken Type clonazepam 0.5 mg tablet (Klonopin) 0.25 mg PO BEDTIME 04/10/20 08/08/21 Unknown History sertraline 100 mg tablet 100 mg PO DAILY 04/10/20 08/08/21 Unknown History amlodipine 10 mg tablet 10 mg PO DAILY 08/08/21 08/08/21 Unknown History docusate sodium 100 mg capsule 100 mg PO DAILY PRN 08/08/21 08/08/21 Unknown History hydrochlorothiazide 25 mg tablet 25 mg PO DAILY 08/08/21 08/08/21 Unknown History lidocaine 5 % topical ointment topical 08/08/21 08/08/21 Unknown History methylcellulose (laxative) 500 mg 500 mg PO DAILY PRN 08/08/21 08/08/21 Unknown History tablet (Citrucel) polyethylene glycol 3350 17 17 g PO ONCE PRN 08/08/21 08/08/21 Unknown History gram/dose oral powder (Miralax) Exam Exam Date and Time: December 08, 2021 0825 Height,Weight and Vital Signs: Height 5 ft Weight 69 kg Last Vital Signs Temp 97.8 F 12/08/21 06:00 Pulse 70 12/08/21 07:09 Resp 14 12/08/21 07:09 BP 135/71 12/08/21 07:09 Pulse Ox 99 12/08/21 07:09 O2 Del Method 12/08/21 07:09 Pertinent Lab Results Pertinent Lab Results: Laboratory Tests 12/08/21 12/08/21 12/08/21 03:39 03:39 03:39 WBC 10.4 RBC 4.80 Hgb 14.3 Hct 41.9 MCV 87.3 MCH 29.8 MCHC 34.1 RDW 12.4 Plt Count 275 MPV 9.4 Immature Gran % (Auto) 0.2 Neut % (Auto) 48.5 Lymph % (Auto) 39.5 [place] % (Auto) 7.0 Eos % (Auto) 4.2 H Baso % (Auto) 0.6 Lymph # (Auto) 4.1 [place] # (Auto) 0.7 Eos # (Auto) 0.4 Baso # (Auto) 0.1 Abs Immat Gran (auto) 0.02 Absolute Neuts (auto) 5.1 Absolute Nucleated RBC 0.000 Nucleated RBC % (auto) 0.0 Sodium 140 Potassium 3.7 Chloride 103 Carbon Dioxide 28 Anion Gap 13 BUN 14 Creatinine 0.98 Estim Creat Clear Calc 56.9 Estimated GFR 59 Random Glucose 113 Calcium 9.6 Total Bilirubin 0.3 Direct Bilirubin < 0.2 AST 22 ALT 32 H Alkaline Phosphatase 93 Total Protein 7.6 Albumin 4.4 Lipase 38 Urine Color Urine Appearance Urine pH Ur Specific [place] Urine Protein Urine Glucose (UA) Urine Ketones Urine Blood Urine Nitrite Ur Leukocyte Esterase Urine RBC Urine WBC Ur Squamous Epith Cells Amorphous Sediment Urine Bacteria COVID-19 (SHAREE) Negative COVID-19 Clin Com See Note 12/08/21 05:36 WBC RBC Hgb Hct MCV MCH MCHC RDW Plt Count MPV Immature Gran % (Auto) Neut % (Auto) Lymph % (Auto) [place] % (Auto) Eos % (Auto) Baso % (Auto) Lymph # (Auto) [place] # (Auto) Eos # (Auto) Baso # (Auto) Abs Immat Gran (auto) Absolute Neuts (auto) Absolute Nucleated RBC Nucleated RBC % (auto) Sodium Potassium Chloride Carbon Dioxide Anion Gap BUN Creatinine Estim Creat Clear Calc Estimated GFR Random Glucose Calcium Total Bilirubin Direct Bilirubin AST ALT Alkaline Phosphatase Total Protein Albumin Lipase Urine Color STRAW Urine Appearance CLOUDY Urine pH 7.5 Ur Specific [place] 1.015 Urine Protein NEG Urine Glucose (UA) NEG Urine Ketones NEG Urine Blood TRACE Urine Nitrite NEG Ur Leukocyte Esterase NEG Urine RBC 0-2 Urine WBC 0-2 Ur Squamous Epith Cells 1+ Amorphous Sediment 3+ Urine Bacteria 1+ COVID-19 (SHAREE) COVID-19 Clin Com Assessment and Plan Final Anesthetic Review History of Problems with Anesthesia: No
[2021-12-08] MEDS: HYDROmorphone HCl 1 MG/ML SYRINGE 0.5 MG IVPUSH (08:28)
[2021-12-08 08:33] LABS: Lactic Acid 1.8 mmol/L (0.5-2.0)
--- NOTE | 2021-12-08 10:37 | W.PM.OPN ---
Operative Note Operative Note Date of Service: 12/08/21 Narrative: Preoperative diagnosis: Acute cholecystitis due to cholelithiasis Postoperative diagnosis: Same Procedure: Laparoscopic cholecystectomy Surgeon: Brian Mock MD Senior Cost Accountant: no physician Anesthesia: General endotracheal Indications for procedure: 56-year-old female patient presenting with acute onset of abdominal pain upper quadrant found to an impacted gallstone at the neck of the gallbladder by ultrasound. On examination the patient is tender in the right upper quadrant with a positive Yu sign. Operative findings: Acutely inflamed and markedly distended gallbladder with gangrenous changes of the gallbladder wall Specimen: gallbladder Estimated blood loss: 5 mL Complications: non Procedure details: Patient was brought to the OR and placed in a supine position. After administering general anesthesia the patient's abdomen was prepped with ChloraPrep and draped in a sterile fashion. Local anesthesia consisting of 0.75% Sensorcaine without epinephrine was infiltrated in a periumbilical region. A 5 mm incision was made above the umbilicus in a transverse fashion. The Veress needle was then inserted while elevating abdominal cavity with towel clips. After positive drop test the abdomen was insufflated to a pressure of 15 mm of mercury. The Veress needle was then removed and a 5 mm trocar inserted. The camera was inserted in the abdomen explored. A 12 mm trocar was then placed in the epigastrium. Two 5 mm trocars placed in the right upper quadrant by the family service assistant. The patient was placed in reverse Trendelenburg positioning and rotated to the left. gallbladder was found to be markedly distended therefore required drainage using a endoscopic drainage needle.The gallbladder was then grasped with the fundus and retracted cephalad by the family service assistant. The infundibulum was then grasped and retracted away from the liver bed, also by the family service assistant. The Dolphin dissected was then used by the surgeon to dissect the peritoneum off the infundibulum to reveal the junction with the cystic duct. Cystic artery was noted slightly medial and posterior to the cystic duct. After obtaining a critical view the cystic duct was doubly clipped and divided. The cystic artery was then doubly clipped and divided. The gallbladder was then dissected off the liver bed using electrocautery with an L hook. Hemostasis was assured all times using the electrocautery. When the gallbladder is completely dissected off the liver bed was placed in an Endo-Catch bag and brought out through the epigastric incision. The gallbladder was sent to pathology for further examination. The abdomen was then re-examined. The liver bed was irrigated and suctioned dry. No bleeding or bile leak could be identified. CO2 was then evacuated and all trocars removed. Fascia was closed at the epigastric incision using a [id number] 0 Polysorb suture. Skin was closed in all incisions using a subcuticular 4 0 Polysorb suture by both the surgeon and family service assistant. Sterile dressings consisting of Steri-Strips, 2 x 2 gauze, and Tegaderm were then applied. The patient tolerated the procedure well. Sponge instrument and needle counts reported as correct. The patient was transferred to PACU in stable condition.
[2021-12-08] MEDS: fentaNYL citrate/PF 100 MCG/2 ML VIAL 25 MCG IVPUSH ×4 (11:05→11:30)
[2021-12-08] MEDS: ondansetron HCL 4 MG/2 ML VIAL IVPUSH (11:06)
[2021-12-08] MEDS: Lactated Ringers 1,000 ML 100 ML IVCONT (14:21)
[2021-12-08 21:20] LABS: Glucose, Whole Blood 142 mg/dL (60-115)
[2021-12-08] MEDS: Melatonin 3 MG TABLET 10 MG PO (22:24)
[2021-12-08] MEDS: clonazePAM 0.5 MG TABLET PO (22:25)
[2021-12-09] VITALS: BP 130/73; PULSE 87; RESP 18; TEMP 36.4; O2SAT 97
[2021-12-09] MEDS: Lactated Ringers 1,000 ML 100 ML IVCONT (00:17)
[2021-12-09 08:00] VITALS: BP 145/84; PULSE 83; RESP 18; TEMP 36.7; O2SAT 99
--- NOTE | 2021-12-09 09:06 | HO.POSTANES ---
Post Anesthesia Evaluation Post Anesthesia Evaluation Vital Signs: Vital Signs Temp Pulse Resp BP Pulse Ox O2 Del Method 12/09/21 08:00 98.0 F 83 18 145/84 H 99 Room Air 12/09/21 00:00 97.5 F 87 18 130/73 97 Room Air Anesthesia: General Endotracheal-GETA Mental Status: Awake Pain Control: Satisfactory Nausea/Vomiting: None Hydration: Adequate Anesthesia-Related Issues: No Anes. Related Issues
--- NOTE | 2021-12-09 09:08 | PM.DS ---
DS: Providers Provider Date of Service: 12/09/21 Date of admission: 12/08/21 07:58 Date of discharge: 12/09/21 Primary care physician: Sara Boyce MD Admitting clinician: Brian Mock Discharging clinician: Brian Mock DS: Diagnosis Discharge Diagnosis (1) Acute cholecystitis due to biliary calculus: Status: Acute DS: Summary Hospital Course Hospital Course: 56-year-old female patient presenting with complaints of abdominal pain in the right upper quadrant associated with nausea and vomiting. She subsequently presented to the emergency department and was found to be tender in the right upper quadrant. Subsequent workup with CT abdomen and pelvis and ultrasound revealed a gallbladder with an impacted gallstone at the neck of the gallbladder. On examination the patient is tender in the right upper quadrant with a positive Yu sign. Findings were suggestive of acute cholecystitis due to cholelithiasis. The patient was taken to the OR on the day of admission 12/08/2021 for a laparoscopic or possible open cholecystectomy. Operative findings were consistent with an acutely inflamed gallbladder which was markedly distended with gangrenous changes in the wall. Gallstone was noted at the neck of the gallbladder completely obstructing the gallbladder. She underwent a laparoscopic cholecystectomy and tolerated the procedure well. On postoperative day 1 patient was tolerating regular diet, without nausea, vomiting, fever or chills. She reported her abdominal pain was much improved although she did have some incisional pain. Wounds were found to be clean and intact. Was subsequently discharged to home in stable condition. Discharge instructions were to avoid lifting greater than 10 lb for 2 weeks. She should remain on a low-fat diet and follow up in the office in 1-2 weeks for wound check. She is welcome to call sooner for any new concerns Time spent discussing smoking cessation with patient: 3 to 10 minutes Status at Discharge Functional status at discharge: independent ambulation Time Spent with Patient Time attestation: Total time spent providing and/or coordinating discharge services: Discharge coordination time: Less than 30 minutes Quality: Safe Use of Opioids Does Pt have an Active Cancer Diagnosis on the Problem List?: No Quality: Stroke Does the patient have a stroke diagnosis?: No Physical Exam Vital Signs: Vital Signs: Last Vital Signs Temp 98.0 F 12/09/21 08:00 Pulse 83 12/09/21 08:00 Resp 18 12/09/21 08:00 BP 145/84 H 07/10/22 08:00 Pulse Ox 99 12/09/21 08:00 O2 Del Method 12/09/21 08:00 BMI result Body Mass Index 29.7 Const: General: cooperative and no acute distress Nutritional Appearance: well nourished Orientation/consciousness: patient oriented x3 Limitations: no limitations HEENT: Head: Yes normocephalic and Yes atraumatic Ears: hearing grossly normal bilaterally Eyes: Sclerae: sclerae normal Resp: Effort & Inspection: normal respiratory effort, no audible wheezes, no cough and no respiratory distress Cardio: Jugular venous distension: no JVD GI: Inspection: Yes normal to inspection Palpation (GI): Soft to palpation, no guarding, not rigid and No Rebound tenderness present Percussion: Yes normal to percussion Auscultation: normal bowel sounds Skin: Other: Warm, dry, no rash Neuro: General: patient oriented x3 Extrem: General: Yes no clubbing, cyanosis or edema Psych: Affect: Anxious affect present DS: Data Data Completed and Pending Pending studies at discharge: Pending at discharge 12/08/21 10:22 Surgical [PTH] Routine Labs on day of discharge: Laboratory Results - last 24 hr 12/08/21 21:15 POC Glucose [address] scan - abdomen: Radiologist's impression: ITS Impressions Abdomen Ultrasound 12/08/21 06:00 IMPRESSION: Hepatic steatosis. Cholelithiasis and gallbladder sludge. No inflammatory change. Chest X-Ray 12/08/21 08:28 IMPRESSION: Unremarkable chest examination. Discharge Plan Discharge Patient Disposition: Home, Self-Care Referrals: Sara Boyce MD [Primary Care Provider] - 1 Week Brian Mock MD [Physician] - 1 Week Discharge Medications: New oxycodone 5 mg tablet 5 mg PO Q6H PRN (Reason: pain (scale score 7-10)) Qty: 15 0RF Rx Instructions: Partial Fill upon patient request. Continued melatonin 10 mg Tablet 10 mg clonazepam [Klonopin] 0.5 mg tablet 0.25 - 0.5 mg PO BID PRN (Reason: Anxiety) Rx Instructions: administer 30 minutes before bedtime sertraline 100 mg tablet 100 mg PO DAILY amlodipine [Norvasc] 10 mg tablet 10 mg PO DAILY hydrochlorothiazide 25 mg tablet 25 mg PO DAILY Discharge Orders: Discharge Order (Routine); Ordered 12/09/21 Ordered By: Brian Mock Diet: Low fat, low cholesterol Activity on Discharge: As tolerated Stand Alone Forms: Patient Portal Discharge page Activity Restrictions/Additional Instructions: No lifting > 10 pounds for 2 weeks No driving for one week Ice to the incision x 24 hours Remove dressing in 3 days Follow up in office in one week. Care Plan Goals: Return to normal diet and activity Health Concerns: Abdominal pain right upper quadrant, nausea and vomiting. Plan of Treatment: Laparoscopic cholecystectomy Assessment: Acute cholecystitis due to cholelithiasis.
[2021-12-09] MEDS: amLODIPine Besylate 10 MG TABLET PO (09:45)
[2021-12-09] MEDS: hydroCHLOROthiazide 25 MG TABLET PO (09:45)
[2021-12-09] MEDS: Sertraline HCL 100 MG TABLET PO (09:45)
== END 2021-12-09 10:30 | disposition home or self-care (01) ==
LOC: HO.ED 06:49 → HO.EDOVER 10:46 → HO.S3 13:06
PROVIDERS: Student in an Organized Health Care Education/Training Program; Admitting Provider Surgery; Emergency Provider Emergency Medicine; PCP Internal Medicine; Visit Provider Surgery
PROC: 0FT44ZZ Resection of Gallbladder, Percutaneous Endoscopic Approach (ICD-10-PCS; CPT 47562; principal; 2021-12-08 08:30)
DX: K80.12 Calculus of gallbladder with acute and chronic cholecystitis without obstruction (principal); R10.11 Right upper quadrant pain; D72.829 Elevated white blood cell count, unspecified; I10 Essential (primary) hypertension; Z20.822 Contact with and (suspected) exposure to COVID-19; Z90.710 Acquired absence of both cervix and uterus; Z79.899 Other long term (current) drug therapy
CPT/HCPCS: 47562; 36415; 71045; 76705; 80053; 81001; 82248; 82947; 83605; 83690; 85025; 87040; 87635; 88304; 93005; 96361; 96365; 99285; J0131; J0696; J1100; J1170; J2250; J2405; J3010

== ENCOUNTER 2021-12-31 07:24 | Outpatient (REF) | payer OTHER, SELFPAY ==
--- NOTE | ~2021-12-31 | MR_ITS ---
EXAMINATION: MR ABDOMEN WITHOUT CONTRAST CLINICAL INFORMATION: Pain post gallbladder surgery COMPARISON: Previous abdominal ultrasound November [address] of the abdomen and pelvis May 2018 TECHNIQUE: MR abdomen is performed without gadolinium contrast. MRCP sequences were also performed. FINDINGS: LUNG BASES: The visualized lung bases are unremarkable. LIVER, GALLBLADDER, AND BILIARY TREE: The liver is normal in size and shape. There is slight signal loss on out of phase sequences in the liver suggestive of mild fatty infiltration. No focal liver lesion is seen. No fluid collection in the gallbladder fossa is seen. There is no intra or extrahepatic biliary duct dilatation. No filling defect in the common bile duct is seen. Common bile duct measures 4 mm. PANCREAS: The pancreas is normal. The main pancreatic duct is normal SPLEEN: Unremarkable. ADRENAL GLANDS: Unremarkable. KIDNEYS AND URETERS: The kidneys are normal in size and shape. No hydronephrosis. No perinephric stranding. GASTROINTESTINAL TRACT: No bowel obstruction. No ascites or fluid collection. ABDOMINAL WALL: There is a small umbilical hernia containing fat. LYMPH NODES: No lymphadenopathy. VASCULAR: Unremarkable. OSSEOUS STRUCTURES: Marrow signal normal. MR/MR MRCP IMPRESSION: Small umbilical hernia containing fat. Mild fatty infiltration of the liver. Otherwise unremarkable abdominal MRI and MRCP.
== END 2021-12-31 07:25 | disposition home or self-care (01) ==
LOC: HO.MRI 07:24
PROVIDERS: Visit Provider Surgery
DX: K80.00 Calculus of gallbladder with acute cholecystitis without obstruction (principal); M54.9 Dorsalgia, unspecified
CPT/HCPCS: 74181

== ENCOUNTER 2022-04-02 11:51 | Outpatient (REF) | payer OTHER, SELFPAY ==
--- NOTE | ~2022-04-02 | MM_ITS ---
EXAMINATION: MM SCREENING DIGITAL BREAST TOMOSYNTHESIS, BILATERAL CLINICAL INFORMATION: Screening. Asymptomatic. The lifetime risk of breast cancer based on the Tyrer-Cuzick Model is 7.8%. COMPARISON: Mammography: February 19, 2021 and studies dating back to January 17, 2015 TECHNIQUE: Digital breast tomosynthesis is performed in both the craniocaudal and mediolateral oblique views along with computer-aided detection (CAD). Synthesized 2D images are generated from the tomosynthesis. FINDINGS: There are scattered areas of fibroglandular density (ACR BI-RADS breast composition Category b). There are no significant masses, abnormal calcifications, or other abnormalities. MM/MM tomosynthesis screening BI IMPRESSION: No significant changes from prior exam. ASSESSMENT: BI-RADS 1: Negative RECOMMENDATION: Routine annual mammography screening. This patient's information was entered into a reminder system with a target due date for their next mammogram.
== END 2022-04-02 11:52 | disposition home or self-care (01) ==
LOC: HO.MAMMO 11:51
PROVIDERS: Visit Provider Internal Medicine
DX: Z12.31 Encounter for screening mammogram for malignant neoplasm of breast (principal)
CPT/HCPCS: 77063; 77067

== ENCOUNTER → 2022-05-06 10:54 | Outpatient (BNVA) | payer OTHER, SELFPAY | PROVIDERS: PCP Internal Medicine; Visit Provider Physician Assistant | DX: Z01.818 Encounter for other preprocedural examination (principal); K59.09 Other constipation | CPT/HCPCS: 99212 ==

== ENCOUNTER 2022-10-12 04:16 | Emergency (ER) | payer OTHER, SELFPAY ==
[2022-10-12 04:31] VITALS: BP 175/85; PULSE 81; RESP 20; TEMP 36.1; O2SAT 98; BMI 28.3
[2022-10-12 04:56] VITALS: BP 150/99; PULSE 86; RESP 16; TEMP 36.7; O2SAT 98
--- NOTE | 2022-10-12 05:05 | ED.GENADULT ---
HPI - General Adult General Chief complaint: General Medical Stated complaint: Shoulder and neck pain Time Seen by Provider: 10/12/22 04:46 History of Present Illness HPI narrative: Patient is a 57-year-old female present today with having pain to the right trapezius area shoulder area worse with movement. Worse with turning to the left. No difficulty moving to the right. Patient denies any fever chills. Denies any bowel urinary incontinence. Denies any chest pain shortness of breath. Denies any diaphoresis. Try to take some muscle relaxant with moderate relief. Have not taking any NSAIDs. No history of kidney problems. Patient is from home. No travel history. No history of blood clots. Related Data Home Medications Medication Instructions Recorded Confirmed clonazepam 0.5 mg tablet (Klonopin) 0.25 - 0.5 mg PO BID PRN Anxiety 04/10/20 01/03/22 sertraline 100 mg tablet 100 mg PO DAILY 04/10/20 01/03/22 amlodipine 10 mg tablet (Norvasc) 10 mg PO DAILY 08/08/21 01/03/22 hydrochlorothiazide 25 mg tablet 25 mg PO DAILY 08/08/21 01/03/22 melatonin 10 mg tablet 10 mg 12/08/21 01/03/22 albuterol sulfate 90 mcg/actuation 0 mcg inhalation 05/06/22 aerosol inhaler ibuprofen 400 mg tablet 0 mg PO 05/06/22 Previous Rx's Medication Instructions Recorded bisacodyl 5 mg tablet,delayed 10 mg PO ONCE colonoscopy prep 1 05/06/22 release (Dulcolax (bisacodyl)) day #2 tabs docusate sodium 100 mg capsule 200 mg PO BEDTIME #60 caps 05/06/22 (Colace) hydrocortisone 2.5 % topical cream 1 appl TN BEDTIME PRN hemorrhoids 05/06/22 with perineal applicator #30 grams (Proctosol HC) polyethylene glycol 3350 17 17 g PO DAILY #510 grams 05/06/22 gram/dose oral powder (Miralax) polyethylene glycol 3350 17 238 g PO ONCE 1 day #238 grams 05/06/22 gram/dose oral powder (Miralax) ibuprofen 400 mg tablet 400 mg PO Q6H PRN pain #20 tabs 10/12/22 Allergies Allergy/AdvReac Type Severity Reaction Status Date / Time latex Allergy Intermediate HIVES Verified 05/06/22 11:02 aspirin [Aspirin] Allergy Mild HIVES Verified 05/06/22 11:02 Sulfa (Sulfonamide Allergy Mild HIVES Verified 05/06/22 11:02 Antibiotics) [Sulfa (Sulfonamides)] Benadryl Allergy Unknown shortness Verified 05/06/22 11:02 of breath ciprofloxacin [From CIPRO] Allergy Unknown TIGHT Verified 05/06/22 11:02 THROAT diphenhydramine Allergy Unknown HIVES Verified 05/06/22 11:02 [From BENADRYL] penicillin V Allergy Unknown shortness Verified 05/06/22 11:02 of breath Penicillins [PENICILLINS] Allergy Unknown SWELLING Verified 05/06/22 11:02 sulfadiazine Allergy Unknown rash Verified 05/06/22 11:02 Vicodin AdvReac Unknown hives Uncoded 01/03/22 09:39 Review of Systems Review of Systems: Positive pain in the right trapezius Yes all other systems are reviewed and are negative PMFSH Past Medical History Attestation statement: The following information was validated with the patient. Medical History Acute cholecystitis due to biliary calculus Asthma H/O Lakisha thyroiditis Lakisha's thyroiditis HTN (hypertension) Surgical History H/O: hysterectomy History of laparoscopic cholecystectomy (12/08/21) Family History Family History Father Diabetes High blood pressure Stroke Mother Pancreatic cancer High blood pressure Sister Diabetes High blood pressure Social History Social History Household Members: None Household Members Other:: single Housing: Apartment Alcohol intake: never Patient Tobacco Use Status: Never used Tobacco Physical Exam ED Vital Signs: Vital Signs - 24 hr 10/12/22 04:31 10/12/22 04:56 Temperature 97 F 98.0 F Pulse Rate 81 86 Respiratory Rate 20 16 Blood Pressure 175/85 H 150/99 H Pulse Oximetry 98 98 Oxygen Delivery Method Room Air Room Air BMI result Body Mass Index 28.3 Appearance: Alert. Oriented X3. No acute distress. Eyes: Pupils equal, round and reactive to light. ENT: Pharynx normal. Neck: Normal inspection. Neck supple. No lymph nodes noted. No crepitus. Positive pain in the right trapezius area. Range of motion to the shoulder is somewhat decreased secondary to pain. There is no pain on turning the head to the right. Pain is worse with turning the head to the left. CVS: Normal heart rate and rhythm. Pulses normal. Normal S1 and S2 Respiratory: No respiratory distress. Breath sounds normal. No Wheezing. No rales Abdomen: Soft and nontender. No rigidity. No distention. good BS x4 Skin: Skin warm and dry. Normal skin color. Normal skin turgor. Extremities: No lower extremity edema. Neurovascular intact to all extremities. No Lacerations. No Rash Neuro: Oriented X 3. No motor deficit. No sensory deficit. Moving all extermities. No slurred speech Medical Decision Making Medical Decision Making [facility] Narrative: Patient's symptoms consistent with torticollis. There is no evidence for cord minus syndrome was patient has no back pain no bowel urinary incontinence. History not consistent with ACS. No distress. Already on muscle relaxant with only moderate relief. Will have patient take NSAIDs. In stable condition. Differential Diagnosis Differential Diagnoses: The differential diagnosis associated with the presentation includes Torticollis, musculoskeletal pain. Lab Data [facility] Lab Attestation statement: I reviewed the patient's lab results. Prescription Management I considered prescription management with: Pain Medication Chronic Conditions Patient?s care impacted by: Hypertension Discharge Plan Discharge Clinical Impression: Torticollis Patient Disposition: Home, Self-Care Instructions: Spasmodic Torticollis (ED) Prescriptions: New ibuprofen 400 mg tablet 400 mg PO Q6H PRN (Reason: pain) Qty: 20 0RF No Action melatonin 10 mg Tablet 10 mg clonazepam [Klonopin] 0.5 mg tablet 0.25 - 0.5 mg PO BID PRN (Reason: Anxiety) Rx Instructions: administer 30 minutes before bedtime sertraline 100 mg tablet 100 mg PO DAILY amlodipine [Norvasc] 10 mg tablet 10 mg PO DAILY hydrochlorothiazide 25 mg tablet 25 mg PO DAILY albuterol sulfate 90 mcg/actuation HFA aerosol inhaler 0 mcg inhalation ibuprofen 400 mg tablet 0 mg PO docusate sodium [Colace] 100 mg capsule 200 mg PO BEDTIME Qty: 60 5RF bisacodyl [Dulcolax (bisacodyl)] 5 mg tablet,delayed release (DR/EC) 10 mg PO ONCE 1 Days Qty: 2 0RF Rx Instructions: Take 2 tablets by mouth at 12:00pm the day before your procedure. polyethylene glycol 3350 [Miralax] 17 gram/dose powder 238 g PO ONCE 1 Days Qty: 238 0RF Rx Instructions: Take as directed by mouth the day before your procedure. polyethylene glycol 3350 [Miralax] 17 gram/dose powder 17 g PO DAILY Qty: 510 6RF hydrocortisone [Proctosol HC] 2.5 % cream with perineal applicator 1 appl TN BEDTIME PRN (Reason: hemorrhoids) Qty: 30 3RF Referrals: Sara Boyce MD [Primary Care Provider] - 10/15/22
[2022-10-12] MEDS: Ibuprofen 400 MG TABLET PO (05:09)
== END 2022-10-12 05:23 | disposition home or self-care (01) ==
PROVIDERS: Emergency Provider Emergency Medicine Emergency Medical Services; PCP Internal Medicine
DX: M43.6 Torticollis (principal); Z79.899 Other long term (current) drug therapy
CPT/HCPCS: 99283; 99284

== ENCOUNTER 2022-12-12 10:00 | Outpatient (RCR) | payer OTHER, SELFPAY | END 2022-12-12 10:36 | disposition home or self-care (01) | LOC: HO.PT 10:00 | PROVIDERS: PCP Internal Medicine; Visit Provider Registered Nurse | DX: M51.36 Other intervertebral disc degeneration, lumbar region (principal); M62.838 Other muscle spasm | CPT/HCPCS: 97110; 97162 ==

== ENCOUNTER 2023-04-08 11:56 | Outpatient (REF) | payer OTHER, SELFPAY ==
--- NOTE | ~2023-04-08 | MM_ITS ---
EXAMINATION: MM SCREENING DIGITAL BREAST TOMOSYNTHESIS, BILATERAL CLINICAL INFORMATION: Screening. Asymptomatic. COMPARISON: Mammography: This study is compared with prior exams dating back to 2017. TECHNIQUE: Digital breast tomosynthesis is performed in both the craniocaudal and mediolateral oblique views along with computer-aided detection (CAD). Synthesized 2D images are generated from the tomosynthesis. FINDINGS: There are scattered areas of fibroglandular density (ACR BI-RADS breast composition Category b). There are no significant masses, abnormal calcifications, or other abnormalities. There are calcified oil cysts in the lower inner quadrant of the left breast. These are benign. MM/MM tomosynthesis screening BI IMPRESSION: No mammographic evidence of malignancy. ASSESSMENT: BI-RADS BI-RADS 2 - Benign Findings RECOMMENDATION: Routine annual mammography screening. 1 year F/U This examination should not preclude the clinical evaluation of a suspicious palpable abnormality. This patient's information was entered into a reminder system with a target due date for their next mammogram.
== END 2023-04-08 11:57 | disposition home or self-care (01) ==
LOC: HO.MAMMO 11:56
PROVIDERS: Visit Provider Internal Medicine
DX: Z12.31 Encounter for screening mammogram for malignant neoplasm of breast (principal)
CPT/HCPCS: 77063; 77067

== ENCOUNTER → 2023-04-08 12:00 | Outpatient (BNV) | payer OTHER, SELFPAY | PROVIDERS: Visit Provider Radiology Diagnostic Radiology | DX: Z12.31 Encounter for screening mammogram for malignant neoplasm of breast (principal) | CPT/HCPCS: 77063; 77067 ==

== ENCOUNTER 2023-05-14 10:04 | Outpatient (REF) | payer OTHER, SELFPAY ==
[2023-05-14 11:33] LABS: MANUAL DIFF FLAG NO
[2023-05-14 11:46] LABS: Basophils Absolute Auto 0.1 X10*3/uL (0.0-0.2); Basophils Percent Auto 0.7 % (0-2); Eosinophils Absolute Auto 0.4 X10*3/uL (0.0-0.4); Eosinophils Percent Auto 4.9 % (0-4); Hematocrit 46.1 % (37.0-47.0); Hemoglobin 15.4 g/dl (12.0-16.0); Imm Gran Abs Auto 0.01 X10*3/uL (0.00-0.03); Imm Gran Pct Auto 0.1 % (0.0-0.4); Lymphocytes Absolute Auto 2.8 X10*3/uL (1.2-4.9); Lymphocytes Percent Auto 32.1 % (20-40); Mean Corpuscular HGB Conc 33.4 g/dl (31.0-35.0); Mean Corpuscular Hemoglobin 30.1 pg (27.0-33.0); Mean Platelet Volume 10.8 fL (9.4-12.3); Monocytes Absolute Auto 0.5 X10*3/uL (0.1-1.2); Monocytes Percent Auto 5.6 % (2-11); Neutrophils Absolute Auto 4.9 x10*3/uL (2.0-8.3); Neutrophils Percent Auto 56.6 % (45-73); Platelet Count 300 X10*3/uL (160-400); Red Blood Count 5.12 X10*6/uL (4.20-5.50); Red Cell Distribution Width 11.9 % (11.0-16.0); White Blood Count 8.7 X10*3/uL (4.8-10.8)
[2023-05-14 12:11] LABS: Alanine Aminotransferase 18 U/L (0-31); Albumin Level 4.4 g/dL (3.5-5.0); Alkaline Phosphatase 101 U/L (39-117); Anion Gap 13 (12-20); Aspartate Amino Transferase 19 U/L (5-31); Bilirubin Total 0.5 mg/dL (0.0-1.0); Blood Urea Nitrogen 14 mg/dL (9-16); Calcium 10.1 mg/dL (8.4-10.2); Carbon Dioxide 28 mmol/L (22-29); Chloride 105 mmol/L (96-108); Estimated Glomerular Filt Rate > 60; Glucose Random 102 mg/dL (60-115); Potassium 3.8 mmol/L (3.3-5.1); Sodium 142 mmol/L (135-145); Total Protein 8.5 g/dL (6.5-8.0)
[2023-05-14 12:40] LABS: HIV AB/AG Nonreactive (Nonreactive); HIV Num 1 0.06 S/CO (0.00-0.99); ~HepC Num1 0.13 S/CO (0.00-0.79); ~Hepatitis C Antibody Nonreactive (Nonreactive)
[2023-05-16 08:44] LABS: RPR Rapid Plasma Reagin NON-REACTIVE (NON-REACTIVE)
== END 2023-05-14 10:05 | disposition home or self-care (01) ==
LOC: HO.HHCL 10:04
PROVIDERS: Visit Provider General Practice
DX: R42 Dizziness and giddiness (principal); Z20.2 Contact with and (suspected) exposure to infections with a predominantly sexual mode of transmission
CPT/HCPCS: 36415; 80053; 84443; 85025; 86592; 86803; 87389

== ENCOUNTER 2023-09-02 19:53 | Emergency (ER) | payer OTHER, SELFPAY ==
--- NOTE | ~2023-09-02 | CT_ITS ---
CT head/brain wo IV con CLINICAL INFORMATION: Confusion COMPARISON: Prior CT 2018 TECHNIQUE: Department standard protocol. This CT examination was performed using dose optimization techniques as appropriate, variously including the following: *Automated exposure control *Adjustment of mA and/or kV according to patient size (this includes techniques or standardized protocols for targeted exams where dose is matched to indication/reason for exam; i.e. extremities or head) *Use of iterative reconstruction technique DLP: 547 mGy-cm FINDINGS: CEREBRAL HEMISPHERES: There is no evidence of intra-axial or extra-axial mass, hemorrhage or acute infarct. BRAIN PARENCHYMA: Normal lopez-white matter differentiation. SUBDURAL SPACE: No bleed. BASAL GANGLIA AND PINEAL GLAND: Unremarkable VENTRICLES: Symmetric and normal in size. CEREBELLUM AND BRAINSTEM: No space-occupying mass, hemorrhage or acute infarct. CEREBELLOPONTINE ANGLES: No lesion found. ORBITS: No intraorbital mass. VESSELS: Unremarkable SKULL BASE: Unremarkable INCLUDED SINUSES AT SKULL BASE: Partial opacification of paranasal sinuses ethmoidal air cells. SKULL AND SKIN: No fracture or bone lesion found. CT/CT head/brain wo IV con IMPRESSION: 1. No CT evidence of intracranial space-occupying mass, bleed or infarct. 2. Partial opacification of paranasal sinuses.
--- NOTE | 2023-09-02 19:56 | ECG_ITS ---
Test Reason : SYNCOPE Blood Pressure : / mmHG Vent. Rate : 077 BPM Atrial Rate : 077 BPM P-R Int : 146 ms QRS Dur : 080 ms QT Int : 392 ms P-R-T Axes : 059 -03 049 degrees QTc Int : 443 ms Normal sinus rhythm Minimal voltage criteria for LVH, may be normal variant ( R in aVL ) Borderline ECG When compared with ECG of 08-DEC-2021 07:54, No significant change was found Referred By: Soraya Morelos Electronically Signed By:DANIEL VIERA MD
--- NOTE | 2023-09-02 20:05 | ED_ITS ---
HPI - Syncope General Chief Complaint: Neuro Symptoms/Deficit Stated Complaint: fainted our for 1 1/2hrs/feels shakey/sweaty Time Seen by Provider: 09/03/23 04:04 Source: patient Mode of arrival: ambulatory Limitations: no limitations History of Present Illness HPI narrative: Patient comes in the emergency room complaining of lightheadedness after taking oxycodone. Patient states that earlier today she had a dental procedure done, patient had bilateral tooth extractions. Patient went home, took an oxycodone, shortly after, patient states that she started feeling dizzy, out of balance, patient was able to grab onto a piece of warned sure and get herself to bed where she fell asleep for about hour and a half. Patient denies any chest pain or shortness of breath. Patient denies any headache, denies falling, not on any blood thinners . Patient denies using drugs or alcohol. Related Data Home Medications Medication Instructions Recorded Confirmed clonazepam 0.5 mg tablet (Klonopin) 0.25 - 0.5 mg PO BID PRN Anxiety 04/10/20 01/03/22 sertraline 100 mg tablet 100 mg PO DAILY 04/10/20 01/03/22 amlodipine 10 mg tablet (Norvasc) 10 mg PO DAILY 08/08/21 01/03/22 hydrochlorothiazide 25 mg tablet 25 mg PO DAILY 08/08/21 01/03/22 melatonin 10 mg tablet 10 mg 12/08/21 01/03/22 albuterol sulfate 90 mcg/actuation 0 mcg inhalation 05/06/22 aerosol inhaler ibuprofen 400 mg tablet 0 mg PO 05/06/22 Previous Rx's Medication Instructions Recorded bisacodyl 5 mg tablet,delayed 10 mg (2 x 5 mg) PO ONCE 05/06/22 release (Dulcolax (bisacodyl)) colonoscopy prep 1 day #2 tabs docusate sodium 100 mg capsule 200 mg (2 x 100 mg) PO BEDTIME #60 05/06/22 (Colace) caps hydrocortisone 2.5 % topical cream 1 appl UT BEDTIME PRN hemorrhoids 05/06/22 with perineal applicator #30 grams (Proctosol HC) polyethylene glycol 3350 17 17 g PO DAILY #510 grams 05/06/22 gram/dose oral powder (Miralax) polyethylene glycol 3350 17 238 g PO ONCE 1 day #238 grams 05/06/22 gram/dose oral powder (Miralax) ibuprofen 400 mg tablet 400 mg PO Q6H PRN pain #20 tabs 10/12/22 Allergies Allergy/AdvReac Type Severity Reaction Status Date / Time latex Allergy Intermediate HIVES Verified 09/02/23 20:06 aspirin [Aspirin] Allergy Mild HIVES Verified 09/02/23 20:06 Sulfa (Sulfonamide Allergy Mild HIVES Verified 09/02/23 20:06 Antibiotics) [Sulfa (Sulfonamides)] Benadryl Allergy Unknown shortness Verified 09/02/23 20:06 of breath ciprofloxacin [From CIPRO] Allergy Unknown TIGHT Verified 09/02/23 20:06 THROAT diphenhydramine Allergy Unknown HIVES Verified 09/02/23 20:06 [From BENADRYL] penicillin V Allergy Unknown shortness Verified 09/02/23 20:06 of breath Penicillins [PENICILLINS] Allergy Unknown SWELLING Verified 09/02/23 20:06 sulfadiazine Allergy Unknown rash Verified 09/02/23 20:06 Vicodin AdvReac Unknown hives Uncoded 09/02/23 20:06 Review of Systems 2 Review of Systems: Constitutional : No Weight loss, No Fever, No Chills, No Night Sweats, No Fatigue, No Malaise ENT/Mouth : Recovering from dental extractions, No Hearing loss, No Ear Pain, No Nasal Congestion, No Sinus Pain, No Hoarseness, No sore throat, No Rhinorrhea, No Swallowing Difficulty Eyes: No Eye Pain, No Swelling, No Redness, No Foreign Body, No Discharge, No Vision Changes Cardiovascular : No Chest Pain, No SOB, No Dyspnea on Exertion, No Orthopnea, No Edema, No Palpitations Respiratory : No Cough, No Sputum, No Wheezing, No Smoke Exposure, No Dyspnea Gastrointestinal : No Nausea, No Vomiting, No Diarrhea, No Constipation, No abdominal Pain, No Hematochezia, No Melena Genitourinary : no irregular bleeding, No Dysuria, No Urinary Frequency, No Hematuria, No Urinary Incontinence, No Urgency, No Flank Pain, No Urinary Flow Changes, No Hesitancy Musculoskeletal : No joint pain, No Myalgias, No Joint Swelling Skin : No Skin Lesions, No rash Neuro : No Weakness, No Numbness, No Paresthesias, No Loss of Consciousness, denies headache, complaining of dizziness after ingesting oxycodone Psych : No Anxiety/Panic, No Depression, No SI/HI/AH/VH, No Social Issues, Heme/Lymph: No Bruising, No Bleeding,No Lymphadenopathy Endocrine : No Polyuria, No Polydipsia, No Temperature Intolerance [facility] Past Medical History Medical History Acute cholecystitis due to biliary calculus Westley's thyroiditis HTN (hypertension) Asthma H/O Westley thyroiditis Surgical History History of laparoscopic cholecystectomy (12/08/21) H/O: hysterectomy Family History Family History Father Diabetes High blood pressure Stroke Mother Pancreatic cancer High blood pressure Sister Diabetes High blood pressure Social History Social History Household Members: None Household Members Other:: single Housing: Apartment Alcohol intake: never Patient Tobacco Use Status: Never used Tobacco Advance Directives: No Advance Directives Information Provided: No Physical Exam 2 Vital Signs: Vital Signs: Last Vital Signs Temp 97.8 F 09/03/23 00:29 Pulse 69 09/03/23 00:29 Resp 16 09/03/23 00:29 BP 148/88 H 09/03/23 00:29 Pulse Ox 98 09/03/23 00:29 O2 Del Method Room Air 09/03/23 00:29 BMI result Body Mass Index 27.8 Const: Other: Appearance: Alert. Oriented X3. No acute distress. Well-appearing Eyes: Pupils equal, round and reactive to light. ENT: Pharynx normal. Neck: Normal inspection. Neck supple. No lymph nodes noted. No crepitus CVS: Normal heart rate and rhythm. Pulses normal. Normal S1 and S2 Respiratory: No respiratory distress. Breath sounds normal. No Wheezing. No rales Abdomen: Soft and nontender. No rigidity. No distention. Skin: Skin warm and dry. Normal skin color. Normal skin turgor. Extremities: No lower extremity edema. No Lacerations. No Rash Neuro: Oriented X 3. No motor deficit. No sensory deficit. Moving all extremities. No slurred speech. CN 2 through 12 grossly intact Psych: calm, cooperative, normal affect Course Course Course Narrative: This is a Rapid Medical Examination (RME) in triage, full HPI, ROS, assessment and plan per primary provider in the Main ED. Anyi is a 58 year old female with history of westley's thyroiditis and bilateral cavity filling this morning presents for evaluation of weakness and lightheadedness since procedure. She states that went to sleep at 5:30pm and woke up 1.5 hrs later. Prior to falling asleep, she felt diaphoretic and lightheaded. Had dental procedure this morning with local anesthesia. Reports that her tongue feels heavy and she feels weak. Lidocaine still in effect on the right side of her mouth. On presentation, she feels nauseous and numb . Denies chest pain. Plan: EKG, labs, CT head Medical Decision Making Medical Decision Making [facility] Narrative: -my interpretation of EKG: Normal sinus rhythm, heart rate 77, no ST segment depression or elevation, no T-wave inversion, QTC 443 -my interpretation of labs: White blood cell count 12.2, likely reactive leukocytosis from dental procedure, chemistry within normal limits, LFTs normal, troponin negative, urinalysis negative, U tox negative, alcohol level negative. -my interpretation of head CT: No intracranial bleed, no acute stroke -orthostatic vitals negative -discussed with the patient that she likely had a combination of vasovagal near syncope due to pain versus side effect from narcotic medication -unlikely to be a cardiac event. -at this time, patient states that she feels better, denies chest pain shortness of breath or lightheadedness. Patient still having mild dental pain. Pain medication offered, patient declined even none narcotics. Differential Diagnosis Differential Diagnoses: The differential diagnosis associated with the presentation includes (Medication side effect, vasovagal near syncope, orthostatic hypotension) Admission/Observation Consideration of admission/observation: Escalation of care including admission/observation considered (Given patient's symptoms, admission was considered) Lab Data [facility] Lab Attestation statement: I reviewed the patient's lab results. 09/02/23 20:16 09/02/23 20:16 Labs: Lab Results 09/02/23 Range/Units 20:16 WBC 12.2 H (4.8-10.8) X10*3/uL RBC 5.11 (4.20-5.50) X10*6/uL Hgb 15.3 (12.0-16.0) g/dl Hct 44.6 (37.0-47.0) % MCV 87.3 (80.0-98.0) fL MCH 29.9 (27.0-33.0) pg MCHC 34.3 (31.0-35.0) g/dl RDW 11.7 (11.0-16.0) % Plt Count 287 (160-400) X10*3/uL MPV 10.0 (9.4-12.3) fL Immature Gran % (Auto) 0.3 (0.0-0.4) % Neut % (Auto) 74.2 H (45-73) % Lymph % (Auto) 19.2 L (20-40) % [place] % (Auto) 3.7 (2-11) % Eos % (Auto) 2.2 (0-4) % Baso % (Auto) 0.4 (0-2) % Lymph # (Auto) 2.3 (1.2-4.9) X10*3/uL [place] # (Auto) 0.5 (0.1-1.2) X10*3/uL Eos # (Auto) 0.3 (0.0-0.4) X10*3/uL Baso # (Auto) 0.1 (0.0-0.2) X10*3/uL Abs Immat Gran (auto) 0.04 H (0.00-0.03) X10*3/uL Absolute Neuts (auto) 9.0 H (2.0-8.3) x10*3/uL Absolute Nucleated RBC 0.000 (0.0-0.012) X10*3/uL Nucleated RBC % (auto) 0.0 (0.0-0.2) /100WBC Sodium 141 (135-145) mmol/L Potassium 3.6 (3.3-5.1) mmol/L Chloride 106 (96-108) mmol/L Carbon Dioxide 27 (22-29) mmol/L Anion Gap 12 (12-20) BUN 11 (9-16) mg/dL Creatinine 0.67 (0.5-1.4) mg/dL Estim Creat Clear Calc 78.6 Estimated GFR > 60 Random Glucose 144 H (60-115) mg/dL Calcium 10.1 (8.4-10.2) mg/dL Magnesium 2.4 (1.6-2.6) mg/dL Total Bilirubin 0.3 (0.0-1.0) mg/dL Direct Bilirubin 0.1 (0.0-0.5) mg/dL AST 25 (5-31) U/L ALT 23 (0-31) U/L Alkaline Phosphatase 108 (39-117) U/L Troponin I High Sens < 2.7 (<3.5-17.0) ng/L Total Protein 8.6 H (6.5-8.0) g/dL Albumin 4.6 (3.5-5.0) g/dL TSH 0.89 (0.32-4.0) uIU/mL Urine Color Yellow Urine Appearance Clear Urine pH 7.0 (5.0-9.0) Ur Specific Marshall <= 1.005 (1.005-1.025) Urine Protein Negative (Neg-Trace) mg/dL Urine Glucose (UA) Negative (Negative) mg/dL Urine Ketones Negative (Negative) mg/dL Urine Blood Negative (Negative) Urine Nitrite Negative (Negative) Ur Leukocyte Esterase Negative (Negative) Urine Opiates Screen Not Detected (Not Detect) Urine Fentanyl Screen Not Detected (Not Detect) Ur Barbiturates Screen Not Detected (Not Detect) Ur Phencyclidine Scrn Not Detected (Not Detect) Ur Amphetamines Screen Not Detected (Not Detect) U Benzodiazepines Scrn Not Detected (Not Detect) Urine Cocaine Screen Not Detected (Not Detect) U Marijuana (THC) Screen Not Detected (Not Detect) Ethyl Alcohol < 10 mg/dL Independent Interpretation I performed an independent interpretation of an: EKG and CT Scan Radiology Impression Discussion of test interpretation with radiology: I have reviewed the radiologist's reading. Radiologist Impression: FINDINGS: CEREBRAL HEMISPHERES: There is no evidence of intra-axial or extra-axial mass, hemorrhage or acute infarct. BRAIN PARENCHYMA: Normal lopez-white matter differentiation. SUBDURAL SPACE: No bleed. BASAL GANGLIA AND PINEAL GLAND: Unremarkable VENTRICLES: Symmetric and normal in size. CEREBELLUM AND BRAINSTEM: No space-occupying mass, hemorrhage or acute infarct. CEREBELLOPONTINE ANGLES: No lesion found. ORBITS: No intraorbital mass. VESSELS: Unremarkable SKULL BASE: Unremarkable INCLUDED SINUSES AT SKULL BASE: Partial opacification of paranasal sinuses ethmoidal air cells. SKULL AND SKIN: No fracture or bone lesion found. CT/CT head/brain wo IV con IMPRESSION: 1. No CT evidence of intracranial space-occupying mass, bleed or infarct. 2. Partial opacification of paranasal sinuses. Critical Care Time Critical Care Time Total Critical Care Time: 35 Attestation: I have personally provided critical care time. Time includes review of lab data, radiology results, discussion with consultants, and monitoring for potential decompensation. Intervention performed as documented. Discharge Plan Discharge Clinical Impression: Near syncope Patient Disposition: Home, Self-Care Instructions: Syncope (ED), Near Syncope (ED) Additional Instructions: Please follow-up with your primary care physician tomorrow. If you have any worsening or new symptoms, please return to the emergency room or call 911 Prescriptions: No Action melatonin 10 mg Tablet 10 mg ibuprofen 400 mg tablet 400 mg PO Q6H PRN (Reason: pain) Qty: 20 0RF clonazepam [Klonopin] 0.5 mg tablet 0.25 - 0.5 mg PO BID PRN (Reason: Anxiety) Rx Instructions: administer 30 minutes before bedtime sertraline 100 mg tablet 100 mg PO DAILY amlodipine [Norvasc] 10 mg tablet 10 mg PO DAILY hydrochlorothiazide 25 mg tablet 25 mg PO DAILY albuterol sulfate 90 mcg/actuation HFA aerosol inhaler 0 mcg inhalation ibuprofen 400 mg tablet 0 mg PO docusate sodium [Colace] 100 mg capsule 200 mg PO BEDTIME Qty: 60 5RF bisacodyl [Dulcolax (bisacodyl)] 5 mg tablet,delayed release (DR/EC) 10 mg PO ONCE 1 Days Qty: 2 0RF Rx Instructions: Take 2 tablets by mouth at 12:00pm the day before your procedure. polyethylene glycol 3350 [Miralax] 17 gram/dose powder 238 g PO ONCE 1 Days Qty: 238 0RF Rx Instructions: Take as directed by mouth the day before your procedure. polyethylene glycol 3350 [Miralax] 17 gram/dose powder 17 g PO DAILY Qty: 510 6RF hydrocortisone [Proctosol HC] 2.5 % cream with perineal applicator 1 appl UT BEDTIME PRN (Reason: hemorrhoids) Qty: 30 3RF
[2023-09-02 20:06] VITALS: BP 182/94; PULSE 83; RESP 18; TEMP 36.4; O2SAT 99; BMI 27.8
[2023-09-02 20:32] LABS: MANUAL DIFF FLAG NO
[2023-09-02 20:37] LABS: Appearance Urine Clear; Color Urine Yellow; Glucose Urine UA Negative (Negative); Leukocyte Esterase Urine Negative (Negative); Nitrite Urine Negative (Negative); Specific Gravity - Urine <= 1.005 (1.005-1.025); Urine Blood Negative (Negative); Urine Ketones Negative (Negative); Urine Protein Negative (Neg-Trace)
[2023-09-02 20:42] LABS: Amphetamine Screen Urine Not Detected (Not Detect); Barbiturates, Urine Not Detected (Not Detect); Benzodiazepines Screen Urine Not Detected (Not Detect); Cannabinoid Screen Urine Not Detected (Not Detect); Cocaine Screen Urine Not Detected (Not Detect); Fentanyl, urine Not Detected (Not Detect); Opiate Screen Urine Not Detected (Not Detect); Phencyclidine Screen Urine Not Detected (Not Detect)
[2023-09-02 20:52] LABS: Alanine Aminotransferase 23 U/L (0-31); Albumin Level 4.6 g/dL (3.5-5.0); Alkaline Phosphatase 108 U/L (39-117); Anion Gap 12 (12-20); Aspartate Amino Transferase 25 U/L (5-31); Bilirubin Direct 0.1 mg/dL (0.0-0.5); Bilirubin Total 0.3 mg/dL (0.0-1.0); Blood Urea Nitrogen 11 mg/dL (9-16); Calcium 10.1 mg/dL (8.4-10.2); Carbon Dioxide 27 mmol/L (22-29); Chloride 106 mmol/L (96-108); Creatinine Clr Calc Pharmacy 78.6; Estimated Glomerular Filt Rate > 60; Glucose Random 144 mg/dL (60-115); Magnesium 2.4 mg/dL (1.6-2.6); Potassium 3.6 mmol/L (3.3-5.1); Sodium 141 mmol/L (135-145); Total Protein 8.6 g/dL (6.5-8.0)
[2023-09-02 20:56] LABS: Ethanol < 10 mg/dL
[2023-09-02 21:00] LABS: Basophils Absolute Auto 0.1 X10*3/uL (0.0-0.2); Basophils Percent Auto 0.4 % (0-2); Eosinophils Absolute Auto 0.3 X10*3/uL (0.0-0.4); Eosinophils Percent Auto 2.2 % (0-4); Hematocrit 44.6 % (37.0-47.0); Hemoglobin 15.3 g/dl (12.0-16.0); Imm Gran Abs Auto 0.04 X10*3/uL (0.00-0.03); Imm Gran Pct Auto 0.3 % (0.0-0.4); Lymphocytes Absolute Auto 2.3 X10*3/uL (1.2-4.9); Lymphocytes Percent Auto 19.2 % (20-40); Mean Corpuscular HGB Conc 34.3 g/dl (31.0-35.0); Mean Corpuscular Hemoglobin 29.9 pg (27.0-33.0); Mean Corpuscular Volume 87.3 fL (80.0-98.0); Monocytes Absolute Auto 0.5 X10*3/uL (0.1-1.2); Monocytes Percent Auto 3.7 % (2-11); Neutrophils Percent Auto 74.2 % (45-73); Platelet Count 287 X10*3/uL (160-400); Red Blood Count 5.11 X10*6/uL (4.20-5.50); Red Cell Distribution Width 11.7 % (11.0-16.0); White Blood Count 12.2 X10*3/uL (4.8-10.8)
[2023-09-02 21:01] LABS: Troponin-I High Sensitivity < 2.7 ng/L (<3.5-17.0)
[2023-09-02 21:14] LABS: TSH reflex Free T4 0.89 uIU/mL (0.32-4.0)
[2023-09-03 00:29] VITALS: BP 148/88; PULSE 69; RESP 16; TEMP 36.6; O2SAT 98
[2023-09-03 04:30] VITALS: BP 173/88; PULSE 66
[2023-09-03 04:31] VITALS: BP 154/89; PULSE 66
[2023-09-03 04:32] VITALS: BP 161/97; PULSE 69
[2023-09-03 05:59] VITALS: BP 148/88; PULSE 69; RESP 16; TEMP 36.6; O2SAT 98
== END 2023-09-03 06:00 | disposition home or self-care (01) ==
PROVIDERS: Physician Assistant; Emergency Provider Emergency Medicine; PCP General Practice
DX: R55 Syncope and collapse (principal); E06.3 Autoimmune thyroiditis; I10 Essential (primary) hypertension; J45.909 Unspecified asthma, uncomplicated; Z88.0 Allergy status to penicillin; Z88.2 Allergy status to sulfonamides; Z88.1 Allergy status to other antibiotic agents; Z88.6 Allergy status to analgesic agent; Z88.8 Allergy status to other drugs, medicaments and biological substances; Z98.890 Other specified postprocedural states
CPT/HCPCS: 36415; 70450; 80048; 80076; 80307; 81003; 83735; 84443; 84484; 85025; 93005; 99284

== ENCOUNTER → 2023-09-02 19:56 | Outpatient (BNV) | payer OTHER, SELFPAY | PROVIDERS: Emergency Provider Emergency Medicine; PCP General Practice; Visit Provider Internal Medicine Cardiovascular Disease | DX: R55 Syncope and collapse (principal) | CPT/HCPCS: 93010 ==

== ENCOUNTER 2023-11-14 18:19 | Outpatient (REF) | payer OTHER, SELFPAY ==
[2023-11-15 11:02] LABS: Bacterial Vaginosis PCR NEGATIVE (Negative); Candida Group PCR NOT DETECTED (Not Detect); Candida glab krusei PCR NOT DETECTED (Not Detect); Trichomonas vaginalis PCR NOT DETECTED (Not Detect)
[2023-11-20 18:14] LABS: HPV 16 RNA NOT DETECTED (NOT DETECTED); HPV mRNA E6/E7 rflx Detected (Not Detected)
== END 2023-11-14 18:20 | disposition home or self-care (01) ==
LOC: HO.HHCLNP 18:19
PROVIDERS: Visit Provider General Practice
DX: Z12.4 Encounter for screening for malignant neoplasm of cervix (principal); R87.821 Vaginal low risk human papillomavirus (HPV) DNA test positive; Z90.710 Acquired absence of both cervix and uterus
CPT/HCPCS: 0352U; 87624; 87625; 88142

== ENCOUNTER 2023-11-18 10:05 | Outpatient (REF) | payer OTHER, SELFPAY ==
[2023-11-18 11:37] LABS: Appearance Urine Cloudy; Color Urine Yellow; Glucose Urine UA Negative (Negative); Leukocyte Esterase Urine Small (1+) (Negative); Nitrite Urine Negative (Negative); Specific Gravity - Urine 1.025 (1.005-1.025); UMIC TRIGGER UACC YES; Urine Blood Negative (Negative); Urine Ketones Trace mg/dL (Negative); Urine Protein Trace mg/dL (Neg-Trace)
[2023-11-18 11:45] LABS: Bacteria Urine 4+ (None Seen); Hyaline Casts Urine 0-2 /LPF (0-2); RBC Urine 0-2 /HPF (0-2); UACC Culture Trigger YES
== END 2023-11-18 10:06 | disposition home or self-care (01) ==
LOC: HO.HHCL 10:05
PROVIDERS: Visit Provider General Practice
DX: R35.0 Frequency of micturition (principal)
CPT/HCPCS: 81001; 87086; 87088; 87186

== ENCOUNTER 2023-11-25 13:53 | Outpatient (REF) | payer OTHER, SELFPAY ==
--- NOTE | ~2023-11-25 | US_ITS ---
EXAMINATION: US DIAGNOSTIC ULTRASOUND BREAST, LEFT CLINICAL INFORMATION: 58-year-old female, pain along lateral margin of reduction scar left breast 4:00 axis. History of bilateral breast reduction. Rule out seroma or infection. COMPARISON: No prior left breast ultrasound. TECHNIQUE: Ultrasound of the breast is performed with real-time lopez scale imaging and color Doppler. Attention was given to the 4:00 axis in the region of breast pain. FINDINGS: As per the technologist, at the 4:00 axis of the left breast, approximately 15-16 cm nipple, there is a small visible bruise on the skin. This abuts the margin of the lateral breast reduction scar. Sonogram demonstrates an oval subcutaneous fat contusion, slightly hyperechoic to represent normal fat, measuring 9 x 4 mm in the 4:00 axis of the left breast, subjacent to the visible bruise. This finding is benign, and no further follow-up is recommended. US/US chest IMPRESSION: Subcutaneous fat contusion measuring 9 x 4 mm in the region of visible bruising at the 4:00 axis left breast, 15-16 cm from the nipple. Recommend clinical management and follow-up. Otherwise, recommend patient return to routine annual screening. ASSESSMENT: BI-RADS 2: Benign RECOMMENDATION: 1. Patient should be managed based on the clinical impression. 2. Otherwise, routine annual screening mammography. This patient's information was entered into a reminder system with a target due date for their next mammogram.
== END 2023-11-25 13:54 | disposition home or self-care (01) ==
LOC: HO.US 13:53
PROVIDERS: PCP General Practice; Visit Provider General Practice
DX: Z98.890 Other specified postprocedural states (principal)
CPT/HCPCS: 76604

== ENCOUNTER 2023-12-17 16:36 | Outpatient (REF) | payer OTHER, SELFPAY ==
[2023-12-17 17:43] LABS: Bacterial Vaginosis PCR NEGATIVE (Negative); Candida Group PCR NOT DETECTED (Not Detect); Candida glab krusei PCR NOT DETECTED (Not Detect); Trichomonas vaginalis PCR NOT DETECTED (Not Detect)
[2023-12-18 10:56] LABS: CT PCR NOT DETECTED (Not Detect.); NG PCR NOT DETECTED (Not Detect.)
== END 2023-12-17 16:37 | disposition home or self-care (01) ==
LOC: HO.LNP 16:36
PROVIDERS: Visit Provider General Practice
DX: N89.8 Other specified noninflammatory disorders of vagina (principal); R35.0 Frequency of micturition
CPT/HCPCS: 0352U; 87086; 87491; 87591

== ENCOUNTER 2024-08-18 11:57 | Outpatient (REF) | payer OTHER, SELFPAY ==
[2024-08-19 16:44] LABS: Bacterial Vaginosis PCR POSITIVE (Negative); Candida Group PCR NOT DETECTED (Not Detect); Candida glab krusei PCR NOT DETECTED (Not Detect); Trichomonas vaginalis PCR NOT DETECTED (Not Detect)
[2024-08-19 17:17] LABS: CT PCR NOT DETECTED (Not Detect.); NG PCR NOT DETECTED (Not Detect.)
== END 2024-08-18 11:58 | disposition home or self-care (01) ==
LOC: HO.LNP 11:57
PROVIDERS: Visit Provider Nurse Practitioner
DX: N94.9 Unspecified condition associated with female genital organs and menstrual cycle (principal); N89.8 Other specified noninflammatory disorders of vagina; R39.9 Unspecified symptoms and signs involving the genitourinary system
CPT/HCPCS: 81515; 87086; 87491; 87591

== ENCOUNTER 2024-08-19 11:32 | Outpatient (REF) | payer OTHER, SELFPAY | END 2024-08-19 11:33 | disposition home or self-care (01) | LOC: HO.LNP 11:32 | PROVIDERS: Visit Provider Nurse Practitioner | DX: Z13.89 Encounter for screening for other disorder (principal) | CPT/HCPCS: 87086 ==

== ENCOUNTER 2024-11-29 12:19 | Outpatient (REF) | payer OTHER, SELFPAY ==
--- OUTSIDE RECORDS SUMMARY | 2024-11-29 12:51 | XMS_ITS | Encounter Summary ---
Author Organization [employer] Address [address] [place] [address] Care Team Providers Care Trash Man Name Role Phone Britany Aguilar MD Primary Care Provider [phone] Reason for Visit * Reason Onset Date Comments Nurse Triage 08/18/2024 Encounter Details Date Type Department Care Team ([facility] st Contact Info) Description 08/18/2024 Telephone [facility] [address] [place] [address] Britany Aguilar MD [address] [place] [address] Nurse Triage Social History Tobacco Use Types Packs/Day Years Used Date Smoking Tobacco: Never Passive Smoke Exposure: Never Smokeless Tobacco: Never Alcohol Use Standard Drinks/Week Comments Never 0 (1 standard drink = 0.6 oz pur e alcohol) Housing Stability Answer Date Recorded What is your housing situation today? I have jos summers 03/27/[address] you li ve. Do you have problems with any of the following? None of the above 03/27/2023 Food Insecurity Answer Date Recorded Within the past 12 months, y ou worried that your food would run out before you got money to buy more: Never True 03/27/2023 Within the past 12 months,th e food you bought just didn't last and you didn't have enough money to get more: Never True Transportation Answer Date Recorded In the past 12 months, has l ack of transportation kept you from medical appts, meetings, work or from getting things needed for daily living? Yes, it has kept me from medical appointments or getting medications. 03/09/2023 Utilities Answer Date Recorded In the past 12 months, has t he electric, gas, oil or water company threatened to shut off services in your home? No 03/27/2023 Depression Answer Date Recorded Patient Health Questionnaire-2 Score 0 11/15/2022 Comments No Sex and Gender Information Value Date Recorded Sex Assigned at Female 04/01/2022 10:19 AM EDT Legal Sex Female 10:19 AM EDT Gender Identity Female 04/01/2022 10:19 AM EDT Sexual Orientation Straight 04/01/2022 10 :19 AM EDT documented as of this encounter Miscellaneous Notes * Telephone Encounter - Sadia Rivas - 08/18/2024 3:10 PM EDT Symptoms: Urination Pain, Urine Symptoms, Back Pain - Not From Injury Outcome: Schedule an urgent appointment (within 4 hours) or talk to a nurse or provider soon Reason: Pain when passing urine (peeing) The caller accepted this outcome. 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
== END 2024-11-29 12:20 | disposition home or self-care (01) ==
LOC: HO.MAMMO 12:19
PROVIDERS: PCP General Practice; Visit Provider General Practice
DX: Z12.31 Encounter for screening mammogram for malignant neoplasm of breast (principal)
CPT/HCPCS: 77063; 77067

== ENCOUNTER → 2024-11-29 12:30 | Outpatient (BNV) | payer OTHER, SELFPAY | PROVIDERS: PCP General Practice; Visit Provider Internal Medicine | DX: Z12.31 Encounter for screening mammogram for malignant neoplasm of breast (principal) | CPT/HCPCS: 77063; 77067 ==

== ENCOUNTER 2025-03-17 13:23 | Outpatient (REF) | payer OTHER, SELFPAY ==
[2025-03-17 16:04] LABS: MANUAL DIFF FLAG NO
[2025-03-17 16:07] LABS: Hematocrit 41.3 % (37.0-47.0); Hemoglobin 14.2 g/dl (12.0-16.0); Imm Gran Abs Auto 0.03 X10*3/uL (0.00-0.03); Imm Gran Pct Auto 0.3 % (0.0-0.4); Lymphocytes Absolute Auto 3.0 X10*3/uL (1.2-4.9); Mean Corpuscular HGB Conc 34.4 g/dl (31.0-35.0); Mean Corpuscular Hemoglobin 30.0 pg (27.0-33.0); Mean Corpuscular Volume 87.3 fL (80.0-98.0); NRBC Abs Auto 0.000 X10*3/uL (0.0-0.012); NRBC Pct Auto 0.0 /100WBC (0.0-0.2); Platelet Count 304 X10*3/uL (160-400); Red Blood Count 4.73 X10*6/uL (4.20-5.50); White Blood Count 9.9 X10*3/uL (4.8-10.8)
[2025-03-17 16:27] LABS: Alanine Aminotransferase 49 U/L (0-31); Albumin Level 4.4 g/dL (3.5-5.0); Anion Gap 12 (12-20); Aspartate Amino Transferase 40 U/L (5-31); Blood Urea Nitrogen 10 mg/dL (9-16); Calcium 9.7 mg/dL (8.4-10.2); Carbon Dioxide 27 mmol/L (22-29); Chloride 106 mmol/L (96-108); Cholesterol 185 mg/dL (<200); Estimated Glomerular Filt Rate > 60; Potassium 3.5 mmol/L (3.3-5.1); Sodium 141 mmol/L (135-145); Total Protein 7.9 g/dL (6.5-8.0); Triglycerides 146 mg/dL (<150)
[2025-03-17 16:28] LABS: Alkaline Phosphatase 156 U/L (39-117); HDL Cholesterol 40 mg/dL (>40)
--- OUTSIDE RECORDS SUMMARY | 2025-03-17 16:46 | XMS_ITS | Encounter Summary ---
Author Organization [employer] Address [address] [place] [address] Care Team Providers Care Jet Ski Mechanic Name Role Phone Britany Aguilar MD Primary Care Provider Reason for Visit * Reason Onset Date Comments Nurse Triage 08/18/2024 Encounter Details Date Type Department Care Team ([facility] st Contact Info) Description 08/18/2024 Telephone [facility] [address] [place] [address] Britany Aguilar MD [address] [place] [address] Nurse Triage Social History Tobacco Use Types [...] the past 12 months, has t he [employer], [employer], [employer] or [employer] threatened to shut off services in your [...] urine (peeing) The caller accepted this outcome. 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
--- OUTSIDE RECORDS SUMMARY | 2025-03-17 16:47 | XMS_ITS | Clinical Summary ---
Author Organization [employer] Address [address] [place] [address] Care Team Providers Care Passenger Conductor Name Role Phone Britany Aguilar MD Primary Care Provider [phone] Allergies Active Allergy Reactions Criticality Noted Date Comments Acetaminophen 12/25/2012 Other reaction(s): shaky legs heart racing Aspirin Hives Low 06/19/2010 Other reaction(s): unspecified Azithromycin 03/31/2012 Other reaction(s): Hives / Skin Rash Ciprofloxacin 09/24/2013 Other reaction(s): TIGHT THROAT Diphenhydramine Hives,Shortness of breath High 05/06/2022 Hydrocodone Hives 12/25/2012 Other reaction(s): shaky legs heart racing Latex Hives High 05/06/2022 Penicillins Shortness of breath High 05/06/2022 Other reaction(s): SWELLING Sulfa Antibiotics Unknown,Hives,Rash Low 06/19/2010 Tomato 04/14/2013 Medications Spacer/Aero-Holdi ng Chambers (OptiChamber Henrietta-Lg Mask) device USE EVERY 4 HOURS NEEDED 2 Active clonazePAM (KlonoPIN) 0.5 MG tablet TAKE 1/2 TO 1 TABLET BY MOUTH TWICE DAILY NEEDED 3 Active DULoxetine (Cymbalta) [address] capsule Take 60 mg by mouth in the morning. 3 Active albuterol 108 (90 Base) MCG/ACT inhalerIndication s:Mild intermittent asthma, unspecified whether complicated Inhale 2 puffs every 6 (six) hours if needed for wheezing or shortness of breath. 18 g 1 5 Active fluticasone (Flonase) 50 MCG/ACT nasal sprayIndications: Nasal congestion SHAKE LIQUID AND USE 1 TO 2 SPRAYS IN EACH NOSTRIL DAILY 16 g 3 5 Active QUEtiapine (SEROquel) 25 MG tablet Take 25 mg by mouth at bedtime. 5 Active amLODIPine (Norvasc) 10 MG tablet TAKE 1 TABLET BY MOUTH EVERY DAY 90 tablet 3 5 Active cholecalciferol (Vitamin D-3) 25 MCG (1000 UT) tablet Take 1 tablet (25 mcg) by mouth Once per day. 90 tablet 3 5 Active losartan (Cozaar) 25 MG tablet Take 1 tablet (25 mg) by mouth Once per day. 30 tablet 5 01/11/20 26 Active lidocaine-priloca ine (Emla) 2.5-2.5 % cream Use 3-4 times daily by topical route as needed for pain 30 g 11 5 Active oxybutynin XL (Ditropan XL) 5 MG 24 hr tablet Take 1 tablet (5 mg) by mouth Once per day. Do not crush, chew, or split. 30 tablet 11 5 01/11/20 26 Active Active Problems Problem Noted Date Diagnosed Date Mild intermittent asthma 06/16/2024 History of bilateral breast reduction surgery Assessment & Plan (11/14/2023 1:32 PM EDT): In June 2023 with ongoing redness at incision site and small mass at lateral border Will obtain ultrasound to rule out infection/seroma Chronic neck and back pain 03/05/202305/08 Macromastia 11/15/2022 Assessment & Plan (11/15/2022 9:19 AM EDT): Referral to plastic surgery BMI <33 In treatment with plastic surgery currently Pelvic pain 11/15/2022 Assessment & Plan (11/15/2022 10:50 AM EDT): Remote history of ovarian cysts, 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 Due for followup, been more than 2 years Screen for colon cancer 10/16/2022 Chronic constipation 10/16/2022 Assessment & Plan (11/15/2022 10:51 AM EDT): Miralax prn Trapezius muscle spasm 10/16/2022 Assessment & Plan (10/16/2022 12:10 PM EDT): Trigger point injections as above Starting PT next week Continue oral and topical meds as helpful Consider acupuncture followup with me for new patient/transfer appointment as next available Degeneration of lumbar intervertebral disc 09/22 Assessment & Plan (09/22/2022 5:11 PM EDT): -Referral to PT for further eval and tx -Request appt with new PCP for trigger point injections for muscle spasms in lumbar area -Continue with symptomatic management at home -Start cyclobenzaprine PRN, reviewed med safety and SE -Start topical lidocaine-prilocaine cream PRN Follow up as needed Lumbar spondylosis 04/13/2020 Assessment & Plan (11/15/2022 10:52 AM EDT): Going to PT at [facility] [place] currently Considering acupuncture Overweight 09/29/2018 Essential hypertension 04/27/2018 Assessment & Plan (01/12/2025 11:28 AM EDT): Not at goal here today, but is at goal at home Continue Amlodipine Add Losartan 25mg in BP at home is >140/90 Assessment & Plan (12/17/2023 12:28 PM EDT): At goal <140/90 at home Continue Amlodipine 10mg daily Assessment & Plan (11/15/2022 10:51 AM EDT): At goal <140/90 Continue Amlodipine 10mg daily Vitamin D deficiency 03/26/2018 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 Assessment & Plan (11/15/2022 10:52 AM EDT): Check TSH today, also CBC for complaint of dizziness Non-toxic multinodular goiter 04/19/2016 Abnormal mammogram 08/09/2012 Rotator cuff injury 08/09/2012 Anxiety 12/27/2011 Migraine 12/26/2010 Resolved Problems Problem Noted Date Diagnosed Date Resolved Date URI (upper respiratory infection) 06/16/2024 10/29/2024 Assessment & Plan (06/16/2024 4:00 PM EST): Drink plenty of fluids and rest Acetaminophen PRN Otitis of left ear 06/16/2024 Torticollis 10/16/2022 10/29/2024 Acute cholecystitis due to biliary calculus 10/16/2022 10/29/2024 Dizziness 04/27/2018 10/29/2024 Back pain 12/27/2007 10/29/2024 Assessment & Plan (12/17/2023 12:33 PM EDT): Acute on chronic back pain, no CVA tenderness Will trial Flexeril 5mg up to TID prn Encounters Date Type Department Care Team Description 03/17/2025 Telephone [facility] MEDICINE [address] [place] [phone] Britany Aguilar MD chart prep 03/11/2025 Travel 01/10/2025 4:00 PM EDT Office Visit [facility] MEDICINE [address] [place] [phone] Britany Aguilar MD Essential hypertension (Primary Dx); Dietary counseling; Exercise counseling; Overweight; Dysuria; Trapezius muscle spasm 01/10/2025 Travel 01/07/2025 Telephone [facility] WALK-IN CENTER [address] [place] [phone] Britany Aguilar MD Chart Prep 01/03/2025 Patient Outreach [facility] MED & PEDS [address] [place] [address] Britany Aguilar MD Pre-visit Planning (SDOH was already completed) from Last 3 Months Immunizations Immunization Administration Dates Next Due Hep A, Adult 07/15/2011 Hep B, adult 12/19/2011,08/15/2011,07/15/2011 Influenza injectable quadriv alent preservative free 07/31/2021 MMR 07/15/2011 TD (adult), 2 Lf tetanus tox oid, preservative free, adsorbed 09/17/2006 Tdap 01/02/2021 Social History Tobacco Use Types Packs/Day Years Used Date Smoking Tobacco: Never Passive Smoke Exposure: Never Smokeless Tobacco: Never Tobacco Cessation:Counseling Given: Not Answered Alcohol Use Standard Drinks/Week Comments Never 0 (1 standard drink = 0.6 oz pur e alcohol) Depression Answer Date Recorded Patient Health Questionnaire-9 Score 15 01/10/2025 Patient Health Questionnaire-9 Score 15 01/10/2025 Last PHQ-9: Questionnaire Data Not on file 0 01/10/2025 Housing Stability Answer Date Recorded What is your housing situation today? I have jos summers 10/19/[address] you li ve. Do you have problems with any of the following? None of the above 10/19/2024 Food Insecurity Answer Date Recorded Within the past 12 months, y ou worried that your food would run out before you got money to buy more: Never True 10/19/2024 Within the past 12 months,th e food you bought just didn't last and you didn't have enough money to get more: Never True Transportation Answer Date Recorded In the past 12 months, has l ack of transportation kept you from medical appts, meetings, work or from getting things needed for daily living? No 10/19/2024 Utilities Answer Date Recorded In the past 12 months, has t he electric, gas, oil or water company threatened to shut off services in your home? Yes 10/19/2024 Depression Answer Date Recorded Patient Health Questionnaire-2 Score 3 01/10/2025 Internet Access Answer Date Recorded Internet Access Q1 Yes 10/19/2024 Internet Access Q2 Not on file 10/19/2024 Comments No Sex and Gender Information Value Date Recorded Sex Assigned at Female 04/01/2022 10:19 AM EDT Legal Sex Female 10:19 AM EDT Gender Identity Female 04/01/2022 10:19 AM EDT Sexual Orientation Straight 04/01/2022 10 :19 AM EDT Last Filed Vital Signs Vital Sign Reading Time Taken Comments Blood Pressure 160/92 01/10/2025 4:04 PM EDT Pulse 88 01/10/2025 4:04 PM EDT Temperature 36.6 C (97.8 F) 01/10/2025 4:04 PM EDT Respiratory Rate 18 01/10/2025 4:04 PM EDT Oxygen Saturation 97% 08/18/2024 5:55 PM EDT Inhaled Oxygen Concentration - - Weight 68.7 kg (151 lb 6.4 oz) 01/10/2025 4:04 P M EDT Height 152.4 cm (5') 01/10/2025 4:04 PM EDT Body Mass Index 29.57 01/10/2025 4:04 PM EDT Plan of Treatment Upcoming Encounters Date Type Department Care Team (Late st Contact Info) Description 2025 3:30 PM EDT Procedure Visit [facility] MEDICINE [address] [place] [address] Britany Aguilar MD [address] [place], [place] [phone] Health Maintenance Due Date Last Done Comments CT Colonography 1965 Colonoscopy 1965 FIT 1965 Sigmoidoscopy 1965 Pneumococcal Vaccine: 50+ Years (1 of 2 - PCV) 1986 Zoster Vaccines (1 of 2) 2017 HPV/Cotest 11/13/2024 11/14/2023, 11/14/2023 Pap Smear 11/13/2024 11/14/2023 COVID-19 Vaccine ( season) 2025 06/04/2022, 06/11/2021, 09/28/2020, Additional history exists Influenza Vaccine (#1) 2025 07/31/2021 Depression Monitoring 07/13/2025 01/10/2025, 025 SDOH Screening 10/19/2025 10/19/2024 FOBT 11/17/2025 11/17/2024 Mammogram 11/29/2025 11/29/2024, 11/0 06/2021, 02/19/2021, Additional history exists Alcohol/Substance Use Screening 01/10/2026 01/10/2025 Tobacco Screening 01/10/2026 01/10/2025 Disability Screening 03/11/2026 03/11/2025 Lipid Panel 01/30/2027 03/17/2025, 01/02, 01/26/2021, Additional history exists Colorectal Cancer Screening 11/18/2027 FIT DNA/Cologuard 11/18/2027 11/17/2024 DTaP/Tdap/Td Vaccines (2 - Td or Tdap) 01/02/2031 01/02/2021, 09/17/2006 RSV Patients and Patients Aged 60 years or older (1 - 1-dose 75+ series) 2042 Hepatitis A Vaccines Aged Out 07/15/2011 No long er eligible based on patient's age to complete this topic Hepatitis B Vaccines Completed 12/19/2011, 08/15/2011, 07/15/2011 HIV Screening Completed 05/14/2023 Hepatitis C Screening Completed 05/14/2023 HIB Vaccines Aged Out No longer eligi ble based on patient's age to complete this topic HPV Vaccines Aged Out No longer eligi ble based on patient's age to complete this topic IPV Vaccines Aged Out No longer eligi ble based on patient's age to complete this topic Meningococcal B Vaccine Aged Out No l onger eligible based on patient's age to complete this topic Meningococcal Vaccine Aged Out No inga ilan eligible based on patient's age to complete this topic RSV under 20 months Aged Out No longe r eligible based on patient's age to complete this topic Rotavirus Vaccines Aged Out No longer eligible based on patient's age to complete this topic Procedures Procedure Name Priority Date/Time Associated Diagnosis Comments COMPREHENSIVE METABOLIC PANEL Routine 03/17/2025 1:25 PM EDT Overweight CBC WITH AUTO DIFFERENTIAL Routine 03/17/2025 1:25 PM EDT Overweight LIPID PANEL, STANDARD Routine 03/17/2025 1:25 PM EDT Overweight TSH W/REFLEX TO FT4 Routine 03/17/2025 1 :25 PM EDT Overweight POCT URINALYSIS DIPSTICK Routine 01/10/2025 4:53 PM EDT Dysuria BI MAMMOGRAM SCREENING TOMOSYNTHESIS BILATERAL Routine 11/29/2024 12:32 PM EDT Encounter for screening mammogram for malignant neoplasm of breast LAB COLOGUARD COLON CANCER SCREEN Routine 11/17/2024 8:30 AM EDT Screening for colon cancer HPV MRNA E6/E7 REFLEX TO HPV 16, 18/45 Routine 11/14/2023 12:00 AM EDT PAP SMEAR Routine 11/14/2023 12:00 AM EDT HEPATITIS C ANTIBODY Routine 05/14/2023 10:05 AM EST Routine screening for STI (sexually transmitted infection) HIV 1/2 ANTIGEN/ANTIBODY, FOURTH GENERATION W/RFL Routine 05/14/2023 10:05 AM EST Routine screening for STI (sexually transmitted infection) from Last 3 Months or Most Recently Relevant to Health Maintenance Results * TSH W/Reflex to FT4 (03/17/2025 1:25 PM EDT) TSH reflex Free T4 1.26 0.32 - 4.0 uIU/mL [facility] Blood Venous blood specimen / Unknown 03/17/2025 1:25 PM EDT 03/17/2025 3:56 PM EDT us Britany Aguilar MD LAB BLOOD ORDERABLES Final Res ult [facility] [address] [place] [phone] * CBC auto differential (03/17/2025 1:25 PM EDT) White Blood Count 9.9 4.8 - 10.8 X10*3/uL [facility] Red Blood Count 4.73 4.20 - 5.50 X10*6/uL [facility] Hemoglobin 14.2 12.0 - 16.0 g/dl [facility] Hematocrit 41.3 37.0 - 47.0 % [facility] Mean Corpuscular Volume 87.3 80.0 - 98.0 fL [facility] Mean Corpuscular Hemoglobin 30.0 27.0 - 33.0 pg [facility] Mean Corpuscular HGB Conc 34.4 31.0 - 35.0 g/dl [facility] Red Cell Distribution Width 12.5 11.0 - 16.0 % [facility] Platelet Count 304 160 - 400 X10*3/uL [facility] Mean Platelet Volume 10.1 9.4 - 12.3 fL [facility] Neutrophils Percent Auto 60.0 45 - 73 % [facility] Imm Gran Pct Auto 0.3 0.0 - 0.4 % [facility] Lymphocytes Percent Auto 29.9 20 - 40 % [facility] Monocytes Percent Auto 6.0 2 - 11 % [facility] Eosinophils Percent Auto 3.3 0 - 4 % [facility] Basophils Percent Auto 0.5 0 - 2 % [facility] NRBC Pct Auto 0.0 0.0 - 0.2 /100WBC [facility] Neutrophils Absolute Auto 5.9 2.0 - 8.3 x10*3/uL [facility] Imm Gran Abs Auto 0.03 0.00 - 0.03 X10*3/uL [facility] Lymphocytes Absolute Auto 3.0 1.2 - 4.9 X10*3/uL [facility] Monocytes Absolute Auto 0.6 0.1 - 1.2 X10*3/uL [facility] Eosinophils Absolute Auto 0.3 0.0 - 0.4 X10*3/uL [facility] Basophils Absolute Auto 0.1 0.0 - 0.2 X10*3/uL [facility] NRBC Abs Auto 0.000 0.0 - 0.012 X10*3/uL [facility] Blood Venous blood specimen / Unknown 03/17/2025 1:25 PM EDT 03/17/2025 3:56 PM EDT us Britany Aguilar MD LAB BLOOD ORDERABLES Final Res ult [facility] [address] [place] [phone] * (ABNORMAL) Lipid Panel, Standard (03/17/2025 1:25 PM EDT) Triglycerides 146 <150 mg/dL [facility] Comment:Desirable Triglyceri de: less than 150 mg/dLBorderline High Triglyceride 150-199 mg/dLHigh Triglyceride: 200-499 mg/dLVery High Triglyceride: greater than or equal to 5OO mg/dL Cholesterol 185 <200 mg/dL [facility] Comment:Desirable Cholestero l: less than 200 mg/dLBorderline High Cholesterol: 200-239 mg/dLHigh Cholesterol: greater than 239 mg/dL LDL Cholesterol Calculated 116(H) <100 mg/dL [facility] Comment:Desirable LDL: less than 100 mg/dLNear Optimal/Above Optimal LDL: 110- 129 mg/dLBorderline High LDL: 130-159 mg/dLHigh LDL: 160-189 mg/dLVery High LDL: greater than or equal to 190 mg/dL HDL Cholesterol 40(L) >40 mg/dL [facility] Comment:Desirable HDL: great er than 40 mg/dL Note: This HDL assay may give artificially low results in patients with liver disease. Blood Venous blood specimen / Unknown 03/17/2025 1:25 PM EDT 03/17/2025 3:56 PM EDT us Britany Aguilar MD LAB BLOOD ORDERABLES Final Res ult [facility] [address] [place] [phone] * (ABNORMAL) Comprehensive Metabolic Panel (03/17/2025 1:25 PM EDT) Sodium 141 135 - 145 mmol/L [facility] Potassium 3.5 3.3 - 5.1 mmol/L [facility] Chloride 106 96 - 108 mmol/L [facility] Carbon Dioxide 27 22 - 29 mmol/L [facility] Anion Gap 12 12 - 20 [facility] Urea Nitrogen (BUN) 10 9 - 16 mg/dL [facility] Creatinine, Serum 0.69 0.5 - 1.4 mg/dL [facility] Estimated Glomerular Filt Rate >60 [facility] Comment:Chronic Kidney Disea se: Estimated GFR < 60 mL/min/1.28f5Akabzm Kidney Disease: Estimated GFR < 15 mL/min/1.73m2 Glucose 123(H) 60 - 115 mg/dL [facility] Calcium 9.7 8.4 - 10.2 mg/dL [facility] Bilirubin, Total 0.3 0.0 - 1.0 mg/dL [facility] Aspartate Amino Transferase 40(H) 5 - 31 U/L [facility] Alanine Aminotransferase 49(H) 0 - 31 U/L [facility] Total Protein 7.9 6.5 - 8.0 g/dL [facility] Albumin Level 4.4 3.5 - 5.0 g/dL [facility] Alkaline Phosphatase 156(H) 39 - 117 U/L [facility] Blood Venous blood specimen / Unknown 03/17/2025 1:25 PM EDT 03/17/2025 3:56 PM EDT us Britany Aguilar MD LAB BLOOD ORDERABLES Final Res ult [facility] [address] [place] [phone] * (ABNORMAL) POCT Urinalysis (01/10/2025 4:53 PM EDT) Color, UA Light Yellow Clarity, UA Clear Glucose, UA Negative Bilirubin, UA Negative Ketones, UA Negative Spec Grav, UA 1.010 Blood, UA Positive(A) Negative, None Detected Comment:Iysed pH, UA 5.5 Protein, UA Negative Urobilinogen, UA 0.2 Leukocytes, UA Negative Negative, Rare, Trace Nitrite, UA Negative Negative, None Detected QC Media Lot # [id number] Lot# Expiration Date [id number] Urine 01/10/2025 4:53 PM EDT Britany Aguilar MD POINT OF CARE TEST ENTER/EDIT ORDERABLES Final Result * BI Mammogram Screening Tomosynthesis Bilateral (11/29/2024 12:32 PM EDT) Anatomical Region Laterality Modality Breast Bilateral Mammography 11/29/2024 12:3 2 PM EDT Narrative 12/12/2024 1:45 PM EDT [facility] [address] [place], [place] [address] Mammography Report Signed Patient: Anyi Em MR#: [id number] : 1965 Acct:[id number] Age/Sex: 59 / F ADM Date: 11/29/24 Loc: HO.MAMMO Attending Dr: Britany Aguilar MD Ordering Physician: Britany Aguilar Results: 2Benign F indings Date of Service: 11/29/24 Follow Up: 1 Year From [facility] Mammogram Procedure(s): MM tomosynthesis screening BI Accession Number(s): [id number] cc: Britany Aguilar EXAMINATION: MM SCREENING DIGITAL BREAST TOMOSYNTHESIS, BILATERAL CLINICAL INFORMATION: Screening. Asymptomatic. COMPARISON: Mammography: Comparison is made with available priors TECHNIQUE: Digital breast mammography with tomosynthesis is performed in both the craniocaudal and mediolateral oblique views along with computer-aided detection (CAD). FINDINGS: There are scattered areas of fibroglandular density (ACR BI-RADS breast composition Category b). Bilateral reduction mammoplasty changes. There are no significant masses, abnormal calcifications, or other abnormalities. MM/MM tomosynthesis screening BI IMPRESSION: No mammographic evidence of malignancy. ASSESSMENT: BI-RADS BI-RADS 2 - Benign Findings RECOMMENDATION: Routine annual mammography screening. 1 year F/U This examination should not preclude the clinical evaluation of a suspicious palpable abnormality. This patient's information was entered into a reminder system with a target due date for their next mammogram. Electronically signed by: Tamy Cavazos DO 12/12/2024 01:42 PM EDT Dictated By: Tamy Cavazos DO Signed By: <Electronically signed by Tamy Cavazos DO in OV> 12/12/24 1342 DD/ 1232 TD/TT: 11/29/24 1244 Triage Specialist: Procedure Note Donotlourdester, Image - 12/12/2024 [facility] [address] [place] [address] Mammography Report Signed Patient: Anyi EmMR#: [id number] : 1965Acct:[id number] Age/Sex: 59 / FADM Date: 11/29/24 Loc: HO.MAMMO Attending Dr: Britany Aguilar MD Ordering Physician: Farzaneh Aguilarults: 2Benign F indings Date of Service: 11/29/24Follow Up: 1 Year From Orig inal Mammogram Procedure(s): MM tomosynthesis screening BI Accession Number(s): [id number] cc: Britany Aguilar EXAMINATION: MM SCREENING DIGITAL BREAST TOMOSYNTHESIS, BILATERAL CLINICAL INFORMATION: Screening. Asymptomatic. COMPARISON: Mammography: Comparison is made with available priors TECHNIQUE: Digital breast mammography with tomosynthesis is performed in both the craniocaudal and mediolateral oblique views along with computer-aided detection (CAD). FINDINGS: There are scattered areas of fibroglandular density (ACR BI-RADS breast composition Category b). Bilateral reduction mammoplasty changes. There are no significant masses, abnormal calcifications, or other abnormalities. MM/MM tomosynthesis screening BI IMPRESSION: No mammographic evidence of malignancy. ASSESSMENT: BI-RADS BI-RADS 2 - Benign Findings RECOMMENDATION: Routine annual mammography screening. 1 year F/U This examination should not preclude the clinical evaluation of a suspicious palpable abnormality. This patient's information was entered into a reminder system with a target due date for their next mammogram. Electronically signed by: Tamy Cavazos DO 12/12/2024 01:42 PM EDT Dictated By: Tamy Cavazos DO Signed By: <Electronically signed by Tamy Cavazos DO in OV> 12/12/24 1342 DD/ 1232 TD/TT: 11/29/24 1244 Triage Specialist: Britany Aguilar MD IMG BI PROCEDURES Final Result * (ABNORMAL) Cologuard?? colon cancer screening (11/17/2024 8:30 AM EDT) Cologuard Result Positive( A) Negative 11/22/2024 1:50 PM EDT [id number] (CLIA #:[id number]) Comment: The Cologuard (TM) test was performed on this specimen. POSITIVE TEST RESULT. A positive Cologuard result should be followed with a colonoscopy or visual examination of the colon. The normal value (reference range) for this assay is negative. TEST DESCRIPTION: Composite algorithmic analysis of stool DNA-biomarkers with hemoglobin immunoassay. Quantitative values of individual biomarkers are not reportable and are not associated with individual biomarker result reference ranges. Cologuard is intended for colorectal cancer screening of adults of either sex, 45 years or older, who are at average-risk for colorectal cancer (CRC). Cologuard has been approved for use by the U.S. FDA. The performance of Cologuard was established in a cross sectional study of average-risk adults aged 50-84. Cologuard performance in patients ages 45 to 49 years was estimated by sub-group analysis of near-age groups. Colonoscopies performed for a positive result may find as the most clinically significant lesion: colorectal cancer [4.0%], advanced adenoma (including sessile serrated polyps greater than or equal to 1cm diameter) [20%] or non- advanced adenoma [31%]; or no colorectal neoplasia [45%]. These estimates are derived from a prospective cross-sectional screening study of 10,000 individuals at average risk for colorectal cancer who were screened with both Cologuard and colonoscopy. (Torri Romero al, N Engl J Med 2014;370(14):0422-2556.) Cologuard may produce a false negative or false positive result (no colorectal cancer or precancerous polyp present at colonoscopy follow up). A negative Cologuard test result does not guarantee the absence of CRC or advanced adenoma (pre-cancer). The current Cologuard screening interval is every 3 years. ([place] Cancer Society and U.S. Multi-Society Task Force). Cologuard performance data in a 10,000 patient pivotal study using colonoscopy as the reference method can be accessed at the following location: [email or web address]. Additional description of the Cologuard test process, warnings and precautions can be found at [email or web address]. Stool specimen (specimen) 11/17/2024 8:30 AM EDT 11/19/2024 12:50 PM EDT us Britany Aguilar MD LAB MOLECULAR DIAGNOSTICS STEVEN VÁZQUEZ Final Result [id number] (CLIA #:[id number]) [address] [place] [address], * (ABNORMAL) HPV mRNA E6/E7 w/Reflex to HPV Genotypes 16, 18/45 (11/14/2023 12:00 AM EDT) HPV nRNA E6/E7 Detected(A ) Not Detected [facility] Comment:Methodology: Transcr iption-Mediated AmplificationThis assay detects E6/E7 viral messenger RNA (mRNA) from 14high-risk HPV types (16,18,31,33,35,39,45,51,52,56,58,59,66,68).Cervical sources are required for HPV testing.If a vaginal source from a patient who has had atotal hysterectomy with removal of cervix wassubmitted, please contact the testing laboratoryfor alternative testing options.For additional information, please refer [email or web address].[employer]/faq/UYD131d0(This link if provided for information/educational purposes only.)THIS TEST WAS PERFORMED AT:[facility] [place] [phone] ALONSO MD HPV 16 RNA NOT DETECTED NOT DETECTED [facility] HPV 18/45 RNA NOT DETECTED NOT DETECTED [facility] Comment:Methodology: Transcr iption Mediated AmplificationCervical sources are required for HPV testing.If a vaginal source from a patient who has had atotal hysterectomy with removal of cervix wassubmitted, please contact the testing laboratoryfor alternative testing options.THIS TEST WAS PERFORMED AT:[facility] [place] [phone] ALONSO MD 11/14/2023 11/17/2023 10: 40 AM EDT Britany Aguilar MD LAB CYTOLOGY ORDERABLES Final Result [facility] [address] [place] [phone] * Pap Smear (11/14/2023 12:00 AM EDT) 11/14/2023 11/17/2023 10: 40 AM EDT Narrative [facility] - 12/16/2023 8:47 AM EDT ----- ------- Name: Anyi Em Age/Sex: 58/F : 1965 Unit#: [id number] Attend Dr: Britany Aguilar Re11/14/23 Status: DEP REF Location: HO.HHCLNP Disch: ----- ------- SPEC : [id number] RECD: 11/17/23-1040 STATUS: TEENA SANTACRUZ NUM: [id number] MARIAH: 11/14/23-[address]: Britany Aguilar ENTERED: 11/17/23-1104 SP TYPE: Pap Smr OT DR: ORDERED: Pap Smear Interpretation Satisfactory for evaluation. No endocervical cells seen. Negative for intraepithelial lesion or malignancy. HPV mRNA E6/E7: DETECTED This assay detects E6/E7 viral messenger RNA (mRNA) from 14 high-risk HPV types (16, 18, 31, 33, 35, 39, 45, 51, 52, 56, 58, 59, 66, 68) HPV Type 16 RNA: Not Detected HPV Type 18/45 RNA: Not Detected HPV testing performed by [facility], [place], [place]. See reference laboratory portion of the EMR for entire report. Clinical Information LMP: Hysterectomy in 2007, unknown if cervical sparing, but no cervix visible on exam Previous PAP test: Unknown date, WNL per pt. Material Received ThinPrep-Cervical ----- ------- Signed (signature on file) Richy Bryson MD 12/16/23 0847 ----- ------- END OF REPORT us Britany Aguilar MD LAB CYTOLOGY ORDERABLES Final Result [facility] [address] [place] [address] [phone] * Hepatitis C Ab (05/14/2023 10:05 AM EST) Hepatitis C Antibody Nonreactive Nonreactive [facility] Comment:Antibodies to HCV no t detected; does not exclude early acuteHCV infection. Blood Venous blood specimen / Unknown 05/14/2023 10:05 AM EST 05/14/2023 11:30 AM EST Britany Aguilar MD LAB BLOOD ORDERABLES Final Res ult Performing Organization Address City/[facility]/ZIP Co de Phone Number [facility] [address] [place] [address] [phone] * HIV-1/2 Antigen and Antibodies, Fourth Generation, with Reflexes (05/14/2023 10:05 AM EST) HIV AB/AG Nonreactive Nonreactive [facility] Comment:HIV-1 p24 Ag and/or HIV-1/HIV-2 Ab not detected.A test result that is nonreactive does not exclude thepossibility of exposure to or infection with HIV-1 and/orHIV-2. Nonreactive results in this assay for individualswith prior exposure to HIV-1 and/or HIV-2 may be due toantigen and antibody levels that are below the limit ofdetection of this assay.The [employer] HIV Ag/Ab Combo assay result andsupplemental assay results should be interpreted inconjunction with the patient's clinical presentation,history and other laboratory results. If the results areinconsistent with clinical evidence, additional testing issuggested to confirm the result. Blood Venous blood specimen / Unknown 05/14/2023 10:05 AM EST 05/14/2023 11:30 AM EST us Britany Aguilar MD LAB BLOOD ORDERABLES Final Res ult Performing Organization Address [facility] Co de Phone Number [facility] [address] [place] [address] [phone] from Last 3 Months or Most Recently Relevant to Health Maintenance Insurance [facility] ONE CARE < 65 [employer] [employer] [id number] Care Teams Passenger Conductor Relationship Specialty Start Date End Date Britany Aguilar MD [address] [place] [phone] PCP - General Family Medicine 05/31/22
--- OUTSIDE RECORDS SUMMARY | 2025-03-17 16:47 | XMS_ITS | Encounter Summary ---
Author Organization [id number] Address [address] [facility] [address] [place] [id number] Care Team Providers Care Pot Feeder Name Role Phone Britany Aguilar MD Primary Care Provider [phone] Reason for Visit * Reason Onset Date Comments chart prep 03/17/2025 Encounter Details Date Type Department Care Team ([facility] st Contact Info) Description 03/17/2025 Telephone [facility] [address] [place] [address] Britany Aguilar MD [address] [place] [address] chart prep Social History Tobacco Use Types Packs/Day Years [...] encounter Miscellaneous Notes * Telephone Encounter - Madi Douglas [place] - 03/17/2025 9:17 AM EDT Chart Prep Labs: not done lvm for pt to complete Images: done Referrals: complete Vaccines due: Covid, Flu, PCV20, and Zoster Screenings: not applicable Overdue care gaps: PHQ-9 and VINCE-7 documented in this encounter Plan of Treatment Upcoming Encounters Date Type Department Care Team (Late st Contact Info) Description 2025 3:30 PM EDT Procedure Visit [facility] [address] [place] [address] Britany Aguilar MD [address] [place] [address] documented as of this encounter Visit Diagnoses Not on filedocumented in this encounter Additional Health Concerns Assessment Noted Time PHQ-9 Depression Total Score: 15 025 4:42 PM EDT documented as of this encounter Care Teams Pot Feeder Relationship Specialty Start Date End Date Britany Aguilar MD [address] [place] [phone] PCP - General Family Medicine 05/31/22 documented as of this encounter
--- OUTSIDE RECORDS SUMMARY | 2025-03-17 16:47 | XMS_ITS | Encounter Summary ---
Author Organization [facility] Address [address] [facility] [address] [place] [phone] Phone Care Team Providers Care Hr Director Name Role Phone Pcp, Unknown Primary Care Provider Unavailabl e Encounter Details Date Type Department Care Team (Late st Contact Info) Description 06/12/2023 Procedure Pass OR Admitting Dept - Virtual Department [address] [place] [address] Social History Tobacco Use Types Packs/Day Years Used Date Smoking Tobacco: Former Cigarettes Q uit: 1982 Smokeless Tobacco: Never Alcohol Use Standard Drinks/Week Comments Never 0 (1 standard drink = 0.6 oz pur e alcohol) Education Answer Date Recorded Are you interested in more education? Not on genet e 02/19/2023 Are you concerned about learning? Not on file 02/19/2023 No 02/19/2023 No 02/19/2023 Digital Access Answer Date Recorded No 02/19/2023 No 02/19/2023 Reliable internet access at home? Not on file 02/19/2023 Device with a working camera? Not on file Intimate Partner Violence Answer Date R ecorded Denied Basic Needs Not on file 06/12/2023 In the past 12 months have y ou been in a relationship with a person who hurts, threatens, or tries to control you? No 06/12/2023 Worried food would run out Not on file 06/12 In the past 12 months have y ou been in a relationship with a person who hurts, threatens, or tries to control you? No 06/12/2023 Comments No Sex and Gender Information Value Date Recorded Sex Assigned at Not on file Legal Sex Female 1:35 PM EDT Gender Identity Not on file Sexual Orientation Not on file documented as of this encounter Plan of Treatment Not on file documented as of this encounter Visit Diagnoses Not on filedocumented in this encounter Care Teams Hr Director Relationship Specialty Start Date End Date Pcp, Unknown PCP - General 02/19/23 documented as of this encounter Additional Source Comments The information contained in this document represents components of the legal health record. It is not the complete legal health record.[facility]
--- OUTSIDE RECORDS SUMMARY | 2025-03-17 16:47 | XMS_ITS | Clinical Summary ---
Author Organization [facility] Address [address] [address] Phone Care Team Providers Care Edge Kitter Name Role Phone Pcp, Unknown Primary Care Provider Unavailabl e Allergies Active Allergy Reactions Criticality Noted Date Comments Aspirin Hives Low 06/19/2010 Other reaction(s): unspecified Hydrocodone Hives 12/25/2012 Other reaction(s): shaky legs heart racing Latex Hives High 05/06/2022 Penicillins Shortness Of Breath High 05/06/2022 Other reaction(s): SWELLING Sulfa (Sulfonamide Antibiotics) Hives,Rash,Unknown Low 06/19/2010 Tomato 04/14/2013 Medications acetaminophen (TYLENOL) 500 MG tablet TAKE 2 TABLETS BY MOUTH EVERY 6 HOURS NEEDED FOR PAIN AND/OR FEVER 2 Active albuterol 90 mcg/actuation inhaler 2 puffs every 4 (four) hours as needed. 2 Active amLODIPine (NORVASC) 10 MG tablet Take 1 tablet by mouth daily. 3 Active bisacodyl (DULCOLAX) 5 mg EC tablet 2 Active clonazePAM (KLONOPIN) 0.5 MG tablet TAKE 1/2 TO 1 TABLET BY MOUTH TWICE DAILY NEEDED Active cholecalciferol (VITAMIN D3) 25 MCG (1,000 unit) tablet PURCHASING OTC 2 Active DULoxetine (CYMBALTA) 30 MG capsule Take 30 mg by mouth. 3 Active ibuprofen (ADVIL,MOTRIN) 400 MG tablet Take 400 mg by mouth every 6 (six) hours as needed. 3 Active lidocaine-prilo carole (EMLA) cream Use 3-4 times daily by topical route as needed for pain 3 Active ramelteon (ROZEREM) 8 mg tablet Take 8 mg by mouth nightly at bedtime as needed. 3 Active hydrocortisone (ANUSOL-HC) 2.5 % rectal cream APPLY RECTALLY TO THE AFFECTED AREA AT BEDTIME NEEDED FOR HEMORRHOIDS 2 Active ondansetron (ZOFRAN) 4 MG tablet Take 1 tablet (4 mg total) by mouth every 8 (eight) hours as needed for nausea. 30 tablet 3 3 Active docusate sodium (COLACE) 100 MG capsule Take 1 capsule (100 mg total) by mouth 2 (two) times a day. 30 capsule 1 3 Active oxyCODONE-aceta minophen (PERCOCET) 5-325 mg per tablet Take 1-2 tablets by mouth every 4 (four) hours as needed for pain (specific location in comments). Take 1-2 tabs every 4 hours as needed for severe pain. 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 Chronic neck and back pain 03/05/2023 Social History Tobacco Use Types Packs/Day Years Used Date Smoking Tobacco: Former Cigarettes Q uit: 1983 Smokeless Tobacco: Never Tobacco Cessation:Counseling Given: Not [...] on file Sexual Orientation Not on file Last Filed Vital Signs Vital Sign Reading Time Taken Comments Blood Pressure 129/67 06/12/2023 1:10 PM EST Pulse 75 06/12/2023 11:15 AM EST Temperature 36 C (96.8 F) 06/12/2023 10:18 AM EST Respiratory Rate 15 06/12/2023 11:15 AM EST Oxygen Saturation 95% 06/12/2023 1:10 PM EST Inhaled Oxygen Concentration - - Weight 64.4 kg (142 lb) 05/30/2023 12:21 PM EST Height 152.4 cm (5') 05/30/2023 12:21 PM EST Body Mass Index 27.73 05/30/2023 12:21 PM EST Plan of Treatment Health Maintenance Due Date Last Done Comments LIPID PANEL 1967 DEPRESSION SCREENING 1979 SMOKING Hx and SMOKELESS TOBACCO SCREENING 1980 HEPATITIS C SCREENING 1985 HIV ONE-TIME SCREENING (18-65 YEARS) 1985 SCREENING FOR DIABETES 2002 COLOGUARD 2012 COLONOSCOPY 2012 COLORECTAL CANCER SCREENING 2012 FIT TEST 2012 FOBT 2012 SIGMOIDOSCOPY 2012 VIRTUAL COLONOSCOPY 2012 PNEUMOCOCCAL VACCINES (50+ years) (1 of 1 - PCV) 2017 ZOSTER VACCINES (1 of 2) 2017 MAMMOGRAM 04/02/2024 04/02/2022, 04/26/2019 INFLUENZA VACCINE (#1) 2024 07/31/2021 COVID-19 VACCINE ( season) 2025 06/04/2022, 06/11/2021, 09/28/2020, Additional history exists Adult Td,Tdap Booster 01/02/2031 01/02/2021, 007 RSV VACCINE (1 - 1-dose 75+ series) 2042 HEPATITIS A VACCINES Aged Out 07/15/2011 No long er eligible based on patient's age to complete this topic HIB VACCINES Aged Out No longer eligi ble based on patient's age to complete this topic MENINGOCOCCAL VACCINES (ACWY) Aged Out No longer eligible based on patient's age to complete this topic MENINGOCOCCAL VACCINES (B) Aged Out N o longer eligible based on patient's age to complete this topic Medical Devices Not on file Procedures Procedure Name Priority Date/Time Associated Diagnosis Comments MAMMOGRAPHY Routine 04/02/2022 2:53 PM EDT from Last 3 Months or Most Recently Relevant to Health Maintenance Results * MAMMOGRAPHY FOR RESULT ENTRY ONLY (04/02/2022 2:53 PM EDT) Historical Provider HEALTH MAINTENANCE Final Result from Last 3 Months or Most Recently Relevant to Health Maintenance Insurance MEDICARE PART A & B [facility] ONE CARE MEDICARE REPLACEMENT MEDICARE PART A & B Member Subscriber Plan / Payer ( fective 2013-Present) Name:Maria Antonia Anyi Member ID:[id number] Relation to Subscriber:Self Name:Anyi Em Subscriber ID:[id number] Payer ID:[id number] Group ID:Not on file Type:Medicare Address: [employer] [address] ONE CARE MEDICARE REPLACEMENT [employer] [facility] MEDICARE PART A & B [facility] CARE MEDICARE REPLACEMENT [place] [id number] MEDICARE PART A & B CARE MEDICARE REPLACEMENT [employer] [id number] MEDICARE PART A & B CARE MEDICARE REPLACEMENT MEDICARE PART A & B [facility] ONE CARE MEDICARE REPLACEMENT Advance Directives For more information, please contact: [phone] (9AM - 5PM [facility], Friday-Friday) * Full Code (Latest Code Status on File) Date Activated Date Inactivated Comments 06/12/2023 6:27 AM Question Answer Comments Code Status Confirmed With: Patient Care Teams Edge Kitter Relationship Specialty Start Date End Date Pcp, Unknown PCP - General 02/19/23 Additional Source Comments The information contained in this document represents components of the legal health record. It is not the complete legal health record.[facility]
--- OUTSIDE RECORDS SUMMARY | 2025-03-17 16:47 | XMS_ITS | Encounter Summary ---
Author Organization [employer] Address [address] [facility] [address]t [place] [address] Care Team Providers Care Stem Threshing Machine Operator Name Role Phone Britany Aguilar MD Primary Care Provider [phone] Encounter Details Date Type Department Care Team ([facility] st Contact Info) Description 11/24/2023 Orders Only [facility] [address] [place] [address] Britany Aguilar MD [address] [place] [address] Social History Tobacco Use Types Packs/Day Years Used Date Smoking Tobacco: Never Smokeless Tobacco: Never Alcohol Use Standard [...] AM EDT documented as of this encounter Plan of Treatment Upcoming Encounters Date Type Department Care Team (Late st Contact Info) Description 2025 3:30 PM EDT Procedure Visit [facility] [address] [place] [address] Britany Aguilar MD [address] [place], [place] [phone] documented as of this encounter Visit Diagnoses Not on filedocumented in this encounter Care Teams Stem Threshing Machine Operator Relationship Specialty Start Date End Date Britany Aguilar MD [address] [place] [address] [phone] PCP - General Family Medicine 05/31/22 documented as of this encounter
== END 2025-03-17 13:24 | disposition home or self-care (01) ==
LOC: HO.HHCL 13:23
PROVIDERS: PCP General Practice; Visit Provider General Practice
DX: E66.3 Overweight (principal); R39.9 Unspecified symptoms and signs involving the genitourinary system; Z13.29 Encounter for screening for other suspected endocrine disorder
CPT/HCPCS: 36415; 80053; 80061; 84443; 85025; 87086; 87088; 87186

== ENCOUNTER 2025-03-18 18:22 | Outpatient (REF) | payer OTHER, SELFPAY ==
--- OUTSIDE RECORDS SUMMARY | 2025-03-18 15:30 | XMS_ITS | Encounter Summary ---
Author Organization [employer] Address [address] [facility] 7t [place] [address] Care Team Providers Care Diplomatic Interpreter Name Role Phone Britany Aguilar MD Primary Care Provider [phone] Reason for Visit * Reason Comments Gynecologic Exam Encounter Details Date Type Department Care Team (Latest Contact Info) Description 2025 3:30 PM EDT Procedure Visit [facility] [address] [place] [address] Britany Aguilar MD [address] [place] [address] 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 (Primary Dx); Lumbar spine pain Social History Tobacco Use Types Packs/Day Years [...] AM EDT documented as of this encounter Last Filed Vital Signs Vital Sign Reading Time Taken Comments Blood Pressure 160/90 2025 3:39 PM EDT Pulse 66 2025 3:39 PM EDT Temperature 36.6 C (97.9 F) 2025 3:39 PM EDT Respiratory Rate 20 2025 3:39 PM EDT Oxygen Saturation - - Inhaled Oxygen Concentration - - Weight 69.9 kg (154 lb 3.2 oz) 2025 3:39 P M EDT Height 152.4 cm (5') 2025 3:39 PM EDT Body Mass Index 30.12 2025 3:39 PM EDT documented in this encounter Plan of Treatment Scheduled Orders Name Type Priority Associated Diagnoses Orde r Schedule ThinPrep Imaging Pap and HPV mRNA E6/E7 with Reflex to HPV 16,18/45 Pathology and Cytology Routine 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 Expected: 2025 (Approximate), Expires: 2026 XR Lumbar Spine Complete 4+ Views Imaging Routine Lumbar spine pain Expected: 2025, Expires: 2026 Bacterial Vaginosis Panel Microbiology Routine 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 Ordered: 2025 documented as of this encounter Visit Diagnoses Diagnosis 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- Primary Other abnormal Papanicolaou smear of cervix and cervical HPV Lumbar spine pain documented in this encounter Additional Health Concerns Assessment Noted Time PHQ-9 Depression Total Score: 15 025 4:42 PM EDT documented as of this encounter Care Teams Diplomatic Interpreter Relationship Specialty Start Date End Date Britany Aguilar MD [address] [place] [address] PCP - General Family Medicine 05/31/22 documented as of this encounter
--- OUTSIDE RECORDS SUMMARY | 2025-03-18 18:40 | XMS_ITS | Clinical Summary ---
Author Organization [employer] Address [address] [facility] 7t [place] [address] Care Team Providers Care Operator Weapon Locating Radar Name Role Phone Britany Aguilar MD Primary Care Provider [phone] Allergies Active Allergy Reactions Criticality Noted Date [...] Remote history of ovarian cysts, managed by [facility] c[employer]er Due for followup, been more than 2 [...] 10:52 AM EDT): Going to PT at [facility] currently Considering acupuncture Overweight 09/29/2018 Essential hypertension [...] Encounters Date Type Department Care Team Description 2025 3:30 PM EDT Procedure Visit [facility] [address] [place] [phone] Britany Aguilar MD 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 (Primary Dx); Lumbar spine pain 2025 Travel 03/17/2025 Telephone [facility] [address] [place] [phone] Britany Aguilar MD chart prep 03/11/2025 Travel 01/10/2025 4:00 PM EDT Office Visit [facility] [address] [place] [address] 94[address] Britany Aguilar MD Essential hypertension (Primary Dx); Dietary counseling; Exercise counseling; Overweight; Dysuria; Trapezius muscle spasm 01/10/2025 Travel 01/07/2025 Telephone [facility] [address] [place] [address] Britany Aguilar MD Chart Prep 01/03/2025 Patient Outreach [facility] [address] [place] [address] Britany Aguilar MD Pre-visit Planning (SDOH was [...] 20 2025 3:39 PM EDT Oxygen Saturation 97% 08/18/2024 5:55 PM EDT Inhaled Oxygen Concentration - - Weight 69.9 kg (154 lb 3.2 oz) 2025 3:39 P M EDT Height 152.4 cm (5') 2025 3:39 PM EDT Body Mass Index 30.12 2025 3:39 PM EDT Plan of Treatment Health Maintenance Due Date [...] Screening 01/10/2026 01/10/2025 Disability Screening 03/11/2026 03/11/2025 Colorectal Cancer Screening 11/18/2027 FIT DNA/Cologuard 11/18/2027 11/17/2024 Lipid Panel 03/17/2030 03/17/2025, 01/02, 01/26/2021, Additional history exists DTaP/Tdap/Td Vaccines (2 - Td or Tdap) [...] Routine 03/17/2025 1 :25 PM EDT Overweight CULTURE, URINE, ROUTINE Routine 03/17/2025 1:25 PM EDT POCT URINALYSIS DIPSTICK Routine 01/10/2025 4:53 PM [...] Free T4 1.26 0.32 - 4.0 uIU/mL [facility] Blood Venous blood specimen / Unknown 03/17/2025 1:25 PM EDT 03/17/2025 3:56 PM EDT us Britany Aguilar MD LAB BLOOD ORDERABLES Final Res ult [facility] [address] [place] [phone] * CBC auto differential (03/17/2025 1:25 PM EDT) White Blood Count 9.9 4.8 - 10.8 X10*3/uL [facility] Red Blood Count 4.73 4.20 - 5.50 X10*6/uL [facility] Hemoglobin 14.2 12.0 - 16.0 g/dl [facility] Hematocrit 41.3 37.0 - 47.0 % [facility] Mean Corpuscular Volume 87.3 80.0 - 98.0 fL [facility] Mean Corpuscular Hemoglobin 30.0 27.0 - 33.0 pg [facility] Mean Corpuscular HGB Conc 34.4 31.0 - 35.0 g/dl [facility] Red Cell Distribution Width 12.5 11.0 - 16.0 % [facility] Platelet Count 304 160 - 400 X10*3/uL [facility] Mean Platelet Volume 10.1 9.4 - 12.3 fL [facility] Neutrophils Percent Auto 60.0 45 - 73 % [facility] Imm Gran Pct Auto 0.3 0.0 - 0.4 % [facility] Lymphocytes Percent Auto 29.9 20 - 40 % [facility] Monocytes Percent Auto 6.0 2 - 11 % [facility] Eosinophils Percent Auto 3.3 0 - 4 % [facility] Basophils Percent Auto 0.5 0 - 2 % [facility] NRBC Pct Auto 0.0 0.0 - 0.2 /100WBC [facility] Neutrophils Absolute Auto 5.9 2.0 - 8.3 x10*3/uL [facility] Imm Gran Abs Auto 0.03 0.00 - 0.03 X10*3/uL [facility] Lymphocytes Absolute Auto 3.0 1.2 - 4.9 X10*3/uL [facility] Monocytes Absolute Auto 0.6 0.1 - 1.2 X10*3/uL [facility] Eosinophils Absolute Auto 0.3 0.0 - 0.4 X10*3/uL [facility] Basophils Absolute Auto 0.1 0.0 - 0.2 X10*3/uL [facility] NRBC Abs Auto 0.000 0.0 - 0.012 X10*3/uL [facility] Blood Venous blood specimen / Unknown 03/17/2025 1:25 PM EDT 03/17/2025 3:56 PM EDT us Britany Aguilar MD LAB BLOOD ORDERABLES Final Res ult [facility] [address] [place] [address] [phone] * (ABNORMAL) Lipid Panel, Standard (03/17/2025 1:25 PM EDT) Triglycerides 146 <150 mg/dL [facility] Comment:Desirable Triglyceri de: less than 150 mg/dLBorderline High Triglyceride 150-199 mg/dLHigh Triglyceride: 200-499 mg/dLVery High Triglyceride: greater than or equal to 5OO mg/dL Cholesterol 185 <200 mg/dL [facility] Comment:Desirable Cholestero l: less than 200 mg/dLBorderline High Cholesterol: 200-239 mg/dLHigh Cholesterol: greater than 239 mg/dL LDL Cholesterol Calculated 116(H) <100 mg/dL [facility] Comment:Desirable LDL: less than 100 mg/dLNear Optimal/Above Optimal LDL: 110- 129 mg/dLBorderline High LDL: 130-159 mg/dLHigh LDL: 160-189 mg/dLVery High LDL: greater than or equal to 190 mg/dL HDL Cholesterol 40(L) >40 mg/dL [facility] Comment:Desirable HDL: great er than 40 mg/dL Note: This HDL assay may give artificially low results in patients with liver disease. Blood Venous blood specimen / Unknown 03/17/2025 1:25 PM EDT 03/17/2025 3:56 PM EDT us Britany Aguilar MD LAB BLOOD ORDERABLES Final Res ult [facility] [address] [place] [address] [phone] * (ABNORMAL) Comprehensive Metabolic Panel (03/17/2025 1:25 PM EDT) Sodium 141 135 - 145 mmol/L [facility] Potassium 3.5 3.3 - 5.1 mmol/L [facility] Chloride 106 96 - 108 mmol/L [facility] Carbon Dioxide 27 22 - 29 mmol/L [facility] Anion Gap 12 12 - 20 [facility] Urea Nitrogen (BUN) 10 9 - 16 mg/dL [facility] Creatinine, Serum 0.69 0.5 - 1.4 mg/dL [facility] Estimated Glomerular Filt Rate >60 [facility] Comment:Chronic Kidney Disea se: Estimated GFR < 60 mL/min/1.90r4Szlfxw Kidney Disease: Estimated GFR < 15 mL/min/1.73m2 Glucose 123(H) 60 - 115 mg/dL [facility] Calcium 9.7 8.4 - 10.2 mg/dL [facility] Bilirubin, Total 0.3 0.0 - 1.0 mg/dL [facility] Aspartate Amino Transferase 40(H) 5 - 31 U/L [facility] Alanine Aminotransferase 49(H) 0 - 31 U/L [facility] Total Protein 7.9 6.5 - 8.0 g/dL [facility] Albumin Level 4.4 3.5 - 5.0 g/dL [facility] Alkaline Phosphatase 156(H) 39 - 117 U/L [facility] Blood Venous blood specimen / Unknown 03/17/2025 1:25 PM EDT 03/17/2025 3:56 PM EDT us Britany Aguilar MD LAB BLOOD ORDERABLES Final Res ult [facility] [address] [place] [phone] * (ABNORMAL) POCT Urinalysis (01/10/2025 4:53 [...] Media Lot # [id number] Lot# Expiration Date [id number] [facility] [place] 01/10/2025 4:53 PM EDT Britany Aguilar MD POINT OF CARE TEST ENTER/EDIT ORDERABLES Final Result * BI Mammogram Screening Tomosynthesis Bilateral (11/29/2024 12:32 PM EDT) Anatomical Region Laterality Modality Breast Bilateral Mammography 11/29/2024 12:3 2 PM EDT Narrative 12/12/2024 1:45 PM EDT [facility] [address] [place] [address] Mammography Report Signed Patient: Anyi Em MR#: [id number] : 1965 Acct:[id number] Age/Sex: 59 / F ADM Date: 11/29/24 Loc: .MAMMO Attending Dr: Britany Aguilar MD Ordering Physician: Britany Aguilar Results: 2Benign F indings Date of Service: 11/29/24 Follow Up: 1 Year From [facility] Mammogram Procedure(s): MM tomosynthesis screening BI Accession Number(s): [id number] cc: Britany Aguilar EXAMINATION: MM SCREENING DIGITAL [...] 12/12/24 1342 DD/ 1232 TD/TT: 11/29/24 1244 [place] Lacer: Procedure Note Juan, Image - 12/12/2024 [facility] [address] [place] [address] Mammography Report Signed Patient: Anyi EmMR#: [id number] : 1965Acct:[id number] Age/Sex: 59 / FADM Date: 11/29/24 Loc: HO.MAMMO Attending Dr: Britany Aguilar MD Ordering Physician: Farzaneh Aguilarults: 2Benign F indings Date of Service: 11/29/24Follow Up: 1 Year From Orig inal Mammogram Procedure(s): MM tomosynthesis screening BI Accession Number(s): [id number] cc: Britany Aguilar EXAMINATION: MM SCREENING DIGITAL [...] 12/12/24 1342 DD/ 1232 TD/TT: 11/29/24 1244 [place] Lacer: Brtiany Aguilar MD IM BI PROCEDURES Final Result * (ABNORMAL) Cologuard?? colon cancer screening (11/17/2024 8:30 AM EDT) Cologuard Result Positive( A) Negative 11/22/2024 1:50 PM EDT [facility] (CLIA #:[id number]) Comment: The Cologuard (TM) test was performed [...] (Torri Romero al, N Engl J Med 2014;370(14):3806-2971.) Cologuard may produce a false negative or false positive result (no colorectal cancer or precancerous polyp present at colonoscopy follow up). A negative Cologuard test result does not guarantee the absence of CRC or advanced adenoma (pre-cancer). The current Cologuard screening interval is every 3 years. ([place] [employer] Society and U.S. Multi-Society Task Force). Cologuard performance data in a 10,000 patient pivotal study using colonoscopy as the reference method can be accessed at the following location: www.[email or web address].Greentoe/results. Additional description of the Cologuard test process, warnings and precautions can be found at [email or web address].com. Stool specimen (specimen) 11/17/2024 8:30 AM EDT 11/19/2024 12:50 PM EDT Britany Aguilar MD LAB MOLECULAR DIAGNOSTICS STEVEN VÁZQUEZ Final Result [facility] (CLIA #:[id number]) [address] [place] [address], * (ABNORMAL) HPV mRNA E6/E7 w/Reflex to HPV Genotypes 16, 18/45 (11/14/2023 12:00 AM EDT) HPV nRNA E6/E7 Detected(A ) Not Detected [facility] Comment:Methodology: Transcr iption-Mediated AmplificationThis assay detects E6/E7 viral messenger RNA (mRNA) from 14high-risk HPV types (16,18,31,33,35,39,45,51,52,56,58,59,66,68).Cervical sources are required for HPV testing.If a vaginal source from a patient who has had atotal hysterectomy with removal of cervix wassubmitted, please contact the testing laboratoryfor alternative testing options.For additional information, please refer tohttp://education.Smallaa/faq/XCM096j5(This link if provided for information/educational purposes only.)THIS TEST WAS PERFORMED AT:[facility] [place] [phone] ALONSO MD HPV 16 RNA NOT DETECTED NOT DETECTED [facility] HPV 18/45 RNA NOT DETECTED NOT DETECTED [facility] Comment:Methodology: Transcr iption Mediated AmplificationCervical sources are required for HPV testing.If a vaginal source from a patient who has had atotal hysterectomy with removal of cervix wassubmitted, please contact the testing laboratoryfor alternative testing options.THIS TEST WAS PERFORMED AT:[facility] [place] [phone] ALONSO MD 11/14/2023 11/17/2023 10: 40 AM EDT Britany Aguilar MD LAB CYTOLOGY ORDERABLES Final Result [facility] [address] [place] [phone] * Pap Smear (11/14/2023 12:00 AM EDT) 11/14/2023 11/17/2023 10: 40 AM EDT Narrative [facility] - 12/16/2023 8:47 AM EDT ----- ------- Name: Darren Emid Age/Sex: 58/F : 1965 Unit#: [id number] Attend Dr: Britany Aguilar Re11/14/23 Status: DEP REF Location: HO.HHCLNP Disch: ----- ------- SPEC : [id number] RECD: 11/17/23-1040 STATUS: TEENA SANTACRUZ NUM: [id number] MARIAH: 11/14/23-[address]: Britany Aguilar ENTERED: 11/17/23-1104 SP TYPE: Pap Smr OTHR DR: ORDERED: Pap Smear Interpretation Satisfactory for [...] RNA: Not Detected HPV testing performed by [facility], [place], [place]. See reference laboratory portion of the EMR for entire report. Clinical Information LMP: Hysterectomy in 2007, unknown if cervical sparing, but no cervix visible on exam Previous PAP test: Unknown date, WNL per pt. Material Received ThinPrep-Cervical ----- ------- Signed (signature on file) Richy Bryson MD 12/16/23 0847 ----- ------- END OF REPORT us Britany Aguilar MD LAB CYTOLOGY ORDERABLES Final Result [facility] [address] [place] [address] [phone] * Hepatitis C Ab (05/14/2023 10:05 AM EST) Hepatitis C Antibody Nonreactive Nonreactive [facility] Comment:Antibodies to HCV no t detected; does not exclude early acuteHCV infection. Blood Venous blood specimen / Unknown 05/14/2023 10:05 AM EST 05/14/2023 11:30 AM EST us Britany Aguilar MD LAB BLOOD ORDERABLES Final Res ult Performing Organization Address City/[facility]/ZIP Co de Phone Number [facility] [address] [place] [phone] [phone] * HIV-1/2 Antigen and Antibodies, Fourth Generation, with Reflexes (05/14/2023 10:05 AM EST) HIV AB/AG Nonreactive Nonreactive [facility] Comment:HIV-1 p24 Ag and/or HIV-1/HIV-2 Ab not detected.A test result that is nonreactive does not exclude thepossibility of exposure to or infection with HIV-1 and/orHIV-2. Nonreactive results in this assay for individualswith prior exposure to HIV-1 and/or HIV-2 may be due toantigen and antibody levels that are below the limit ofdetection of this assay.The [employer] HIV Ag/Ab Combo assay result andsupplemental assay results should be interpreted inconjunction with the patient's clinical presentation,history and other laboratory results. If the results areinconsistent with clinical evidence, additional testing issuggested to confirm the result. Blood Venous blood specimen / Unknown 05/14/2023 10:05 AM EST 05/14/2023 11:30 AM EST us Britany Aguilar MD LAB BLOOD ORDERABLES Final Res ult Performing Organization Address City/[facility]/ZIP Co de Phone Number [facility] [address] [place] [address] [phone] from Last 3 Months or Most Recently Relevant to Health Maintenance Insurance [facility] ONE CARE < 65 [place] [id number] Care Teams Operator Weapon Locating Radar Relationship Specialty Start Date End Date Britany Aguilar MD [address] [place] [phone] PCP - General Family Medicine 05/31/22
--- OUTSIDE RECORDS SUMMARY | 2025-03-18 18:40 | XMS_ITS | Clinical Summary ---
Author Organization [facility] Address [address] [address] Phone Care Team Providers Care Creative Arts Therapist Name Role Phone Pcp, Unknown Primary Care [...] Maintenance Insurance MEDICARE PART A & B [facility] ONE CARE MEDICARE REPLACEMENT MEDICARE PART A & B Member Subscriber Plan / Payer ( fective 2013-Present) Name:Maria Antonia Anyi Member ID:[id number] Relation to Subscriber:Self Name:Anyi Em Subscriber ID:[id number] Payer ID:[id number] Group ID:Not on file Type:Medicare Address: [employer] [address] ONE CARE MEDICARE REPLACEMENT [employer] [facility] MEDICARE PART A & B [facility] CARE MEDICARE REPLACEMENT [place] [id number] MEDICARE PART A & B CARE MEDICARE REPLACEMENT [place] [address] MEDICARE PART A & B CARE MEDICARE REPLACEMENT MEDICARE PART A & B [facility] ONE CARE MEDICARE REPLACEMENT Advance Directives For more information, please contact: [phone] (9AM - 5PM [facility], Friday-Friday) * Full Code (Latest Code Status on File) Date Activated Date Inactivated Comments 06/12/2023 6:27 AM Question Answer Comments Code Status Confirmed With: Patient Care Teams Creative Arts Therapist Relationship Specialty Start Date End Date Pcp, Unknown PCP - General 02/19/23 Additional Source Comments The information contained in this document represents components of the legal health record. It is not the complete legal health record.[facility]
--- OUTSIDE RECORDS SUMMARY | 2025-03-18 18:40 | XMS_ITS | Encounter Summary ---
Author Organization [facility] Address [address] [facility] [address] [place] [phone] Phone Care Team Providers Care Toe Puncher Name Role Phone Pcp, Unknown Primary Care Provider Unavailabl e Encounter Details Date Type Department Care Team (Late st Contact Info) Description 06/12/2023 Procedure Pass OR Admitting Dept - Virtual Department [address] [place] [address] Social History Tobacco Use Types Packs/Day Years [...] on filedocumented in this encounter Care Teams Toe Puncher Relationship Specialty Start Date End Date Pcp, Unknown PCP - General 02/19/23 documented as of this encounter Additional Source Comments The information contained in this document represents components of the legal health record. It is not the complete legal health record.[facility]
--- OUTSIDE RECORDS SUMMARY | 2025-03-18 18:40 | XMS_ITS | Encounter Summary ---
Author Organization [employer] Address [address] [facility] [address] h [address] [place] [phone] Care Team Providers Care Electrician Maintenance Name Role Phone Britany Aguilar MD Primary Care Provider [phone] Reason for Visit * Reason Onset Date Comments chart prep 03/17/2025 Encounter Details Date Type Department Care Team ([facility] st Contact Info) Description 03/17/2025 Telephone [facility] [address] [place] [address] Britany Aguilar MD [address] [place] [address] chart prep Social History Tobacco Use Types [...] documented in this encounter Plan of Treatment Not on file documented as of this encounter Visit Diagnoses Not on filedocumented in this encounter Additional Health Concerns Assessment Noted Time PHQ-9 Depression Total Score: 15 025 4:42 PM EDT documented as of this encounter Care Teams Electrician Maintenance Relationship Specialty Start Date End Date Britany Aguilar MD [address] [place] [phone] PCP - General Family Medicine 05/31/22 documented as of this encounter
--- OUTSIDE RECORDS SUMMARY | 2025-03-18 18:40 | XMS_ITS | Encounter Summary ---
Author Organization [employer] Address [address] [facility] [address]t [place] [address] Care Team Providers Care Reconciler Name Role Phone Britany Aguilar MD Primary Care Provider [phone] Encounter Details Date Type Department Care Team ([facility] st Contact Info) Description 11/24/2023 Orders Only [facility] [address] [place] [address] Britany Aguilar MD [address] [place] [address] Social History Tobacco Use Types Packs/Day Years [...] on filedocumented in this encounter Care Teams Reconciler Relationship Specialty Start Date End Date Britany Aguilar MD [address] [place] [address] PCP - General Family Medicine 05/31/22 documented as of this encounter
--- OUTSIDE RECORDS SUMMARY | 2025-03-18 18:40 | XMS_ITS | Encounter Summary ---
Author Organization [employer] Address [address] [facility] [address]t [place] [address] Care Team Providers Care Black Leather Buffer Name Role Phone Britany Aguilar MD Primary Care Provider Reason for Visit * Reason Onset Date Comments Nurse Triage 08/18/2024 Encounter Details Date Type Department Care Team ([facility] st Contact Info) Description 08/18/2024 Telephone [facility] [address] [place] [address] Britany Aguilar MD [address] [place] [address] Nurse Triage Social History Tobacco Use Types [...] the past 12 months, has t he [employer], [employer], [employer] or [employer] threatened to shut off services in your [...] urine (peeing) The caller accepted this outcome. 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
--- OUTSIDE RECORDS SUMMARY | 2025-03-18 18:40 | XMS_ITS | Encounter Summary ---
Author Organization [employer] Address [address] [facility] [address] [place] [address] Care Team Providers Care Jig Hand Name Role Phone Britany Aguilar MD Primary Care Provider [phone] Encounter Details Date Type Department Care Team (Latest Contact Info) Description 2025 Travel Social History Tobacco Use Types Packs/Day Years [...] documented as of this encounter Care Teams Jig Hand Relationship Specialty Start Date End Date Britany Aguilar MD [address] [place] [address] PCP - General Family Medicine 05/31/22 documented as of this encounter
[2025-03-19 12:02] LABS: Bacterial Vaginosis PCR NEGATIVE (Negative); Candida Group PCR NOT DETECTED (Not Detect); Candida glab krusei PCR NOT DETECTED (Not Detect); Trichomonas vaginalis PCR NOT DETECTED (Not Detect)
== END 2025-03-18 18:23 | disposition home or self-care (01) ==
LOC: HO.HHCLNP 18:22
PROVIDERS: Visit Provider General Practice
DX: R87.618 Other abnormal cytological findings on specimens from cervix uteri (principal)
CPT/HCPCS: 81515; 87626; 88175

== ENCOUNTER 2025-03-21 11:34 | Outpatient (REF) | payer OTHER, SELFPAY ==
--- NOTE | ~2025-03-21 | XR_ITS ---
EXAMINATION: XR LUMBOSACRAL SPINE CLINICAL INFORMATION: Low back pain with radiation down left leg x2 months. COMPARISON: 08/21/2019 TECHNIQUE: 5 views of the lumbar spine, inclusive of bilateral oblique views, were obtained. FINDINGS: There is no scoliosis. There is a normal lumbar lordosis. There is no subluxation. There is no compression deformity, fracture, or suspicious bone lesion. There is mild multilevel disc degeneration present, most significant at L5-S1. There is normal facet alignment. There are mild degenerative facet changes present. There is no evidence of pars defects on the oblique projections. The sacrum is intact. Mild degenerative changes in both SI joints. Soft tissues demonstrate cholecystectomy clips present. XR/XR lumbar spine 4V min IMPRESSION: 1. No acute bony or soft tissue abnormality of the lumbar spine. 2. Mild degenerative spondylosis most significant at L5-S1. Electronically signed by: Jamal Linares MD 03/21/2025 12:23 PM EDT
== END 2025-03-21 11:35 | disposition home or self-care (01) ==
LOC: HO.HHCX 11:34
PROVIDERS: PCP General Practice; Visit Provider General Practice
DX: M54.50 Low back pain, unspecified (principal)
CPT/HCPCS: 72110

== ENCOUNTER → 2025-03-21 11:43 | Outpatient (BNV) | payer OTHER, SELFPAY | PROVIDERS: PCP General Practice; Visit Provider Radiology Diagnostic Radiology | DX: M47.817 Spondylosis without myelopathy or radiculopathy, lumbosacral region (principal) | CPT/HCPCS: 72110 ==